=== PATIENT | female | born 1970 | race Caucasian/White ===

== ENCOUNTER 2022-02-09 09:26 | Emergency (ER) | payer MEDICAID, SELFPAY ==
--- NOTE | 2022-02-09 09:34 | ECG_ITS ---
[facility] Test Date: 2022-02-09 Pat Name: Colleen Nielsen Department: Room: Gender: Female Pie Icer Machine: : 1970 Requested By: Cyrus Olivas Order Number: [id number] Reading MD: Jonathan Hayes M.D. Measurements Intervals [place] Rate: 91 P: 240 CO: 186 QRS: 46 QRSD: 85 T: 59 QT: 409 QTc: 504 Interpretive Statements ELECTRONIC ATRIAL PACEMAKER POSSIBLE RIGHT VENTRICULAR CONDUCTION DELAY [RSR (QR) IN V1/V2] MINIMAL ST DEPRESSION [0.025+ mV ST DEPRESSION] ABNORMAL RHYTHM ECG INTERPRETATION BASED ON A DEFAULT AGE OF 40 YEARS Compared to ECG 10/09/2016 17:25:26 Sinus rhythm no longer present Atrial premature complex(es) no longer present ST (T wave) deviation still present Electronically Signed On 02-09-2022 16:29:40 CDT by Jonathan Hayes M.D. [id number]
[2022-02-09 09:35] VITALS: BP 170/99; PULSE 98; RESP 18; TEMP 36.3; O2SAT 98; BMI 21.9
[2022-02-09 09:39] VITALS: BP 157/107
--- NOTE | 2022-02-09 09:54 | ED_ITS ---
HPI - Weakness General: Chief complaint: Weakness Stated complaint: weakness Time Seen by Provider: 02/09/22 09:34 Source: patient Mode of arrival: ambulatory Limitations: no limitations History of Present Illness: 51-year-old female presents emergency room complaining generalized weeakness. She is has a history hypertension atrial fibrillation has not been taking any of her medications or seeing any physicians for management of her chronic medical problems evidently due to cost and access. Some generalized abdominal discomfort no dysuria urgency or frequency. She states she has had this for the last several weeks she describes her self as feeling numb generally weak get some cramping in her abdomen denies hematochezia melena hematemesis coffee-ground emesis. Numbness and tingling is bilateral in upper and lower extremities as well as bilaterally on the face. MD Complaint: generalized weakness Onset (ago): week(s) Duration: constant Location: generalized Severity: mild Quality: tingling and numbness Relieving factors: none Associated symptoms: Denies chest pain, chills, confusion, melena, decreased appetite, diaphoresis, dysuria, easy bruising, fever(s), headache(s), myalgias, nausea, rash, short of breath, syncope or vomiting Review of Systems Const: Denies: fever(s), chills, fatigue, malaise or diaphoresis ENMT: Denies: throat pain, ear or mastoid pain, nasal discharge or nasal congestion Card: Denies: chest pain or syncope Resp: Denies: dyspnea, productive cough, non-productive cough or wheezing GI: Reports: abdominal pain (Intermittent lower abdominal cramping); Denies: nausea, vomiting or melena : Denies: dysuria Skin/Breast: Denies: rash or pruritus Neuro: Denies: headache(s) or confusion Gary/Lymph: Denies: easy bruising PFSH ED PFSH: Medical History Atrial fibrillation Cardiomyopathy delivery delivered delivery delivered Hypertension Pacemaker Radiculopathy SVT (supraventricular tachycardia) Surgical History H/O dilation and curettage History of partial hysterectomy Family History Other CAD (coronary artery disease) Cancer Diabetes Psychiatric illness Social History Smoking and tobacco status: current every day smoker Alcohol intake: never Physical Exam Const: COMMON NORMALS: no acute distress GENERAL APPEARANCE: cooperative and comfortable ORIENTATION/CONSCIOUSNESS: Yes awake, Yes oriented to person, Yes oriented to place and Yes oriented to time HENMT: COMMON NORMALS: normocephalic, atraumatic and hearing grossly normal bilaterally HEAD & SCALP: normocephalic and atraumatic Resp: COMMON NORMALS: normal respiratory effort, No retractions, No use of acc essory muscles and clear to auscultation bilaterally AUSCULTATION: clear to auscultation bilaterally Cardio: COMMON NORMALS: regular rate, regular rhythm and No murmurs present (Cardio) RATE: regular rate RHYTHM: regular rhythm GI: COMMON NORMALS: Soft to palpation and No hepatosplenomegaly present AUSCULTATION: Yes normoactive bowel sounds PALPATION: Yes Soft to palpation, No Tenderness to palpation present (GI), No Guarding due to palpation present (G I) and Yes No hepatosplenomegaly present Extremity: COMMON NORMALS: normal to inspection, capillary refill normal, no clubbing, cyanosis or edema, no calf tenderness and no pedal edema Neuro: SENSORIUM/ORIENTATION: Yes oriented to person, Yes oriented to place and Yes oriented to time Skin: COMMON NORMALS: no rashes or lesions noted GENERAL SKIN EXAM: no rashes or lesions noted Course Vital Signs: Vital signs: Vital Signs Temperature 97.3 F L 02/09/22 09:35 Pulse Rate 98 02/09/22 09:35 Respiratory Rate 18 02/09/22 09:35 Blood Pressure 170/99 02/09/22 09:35 Pulse Oximetry 98 02/09/22 09:35 Oxygen Delivery Me thod 02/09/22 09:35 MDM - Weakness Medical Decision Making No acute findings on exam. Blood pressure is elevated. EKG shows normal sinus rhythm. He should benefit from blood pressure control obvious best choice at is point with Toprol-XL. We will give her 30 days of that we will have case management get her set up for primary care and they can further evaluate some of her symptoms although I suspect some of them may be improved just by getting blood pressure under control. Medical Records I reviewed the patient's medical records. Lab Data I reviewed the patient's lab results. : 02/09/22 11:08 02/09/22 11:04 Laboratory Results WBC 6.2 10^3/uL (4.0-10.0) 02/09/22 11:08 Corrected WBC Cancelled 02/09/22 09:59 RBC 4.24 10^6/uL (4.1-5.3) 02/09/22 11:08 Hgb 15.5 g/dL (11.5-15.3) H 02/09/22 11:08 Hct 44.5 % (37.0-47.0) 02/09/22 11:08 MCV 105.0 fl (81-99) H 02/09/22 11:08 MCH 36.6 pg (28.0-34.0) H 02/09/22 11:08 MCHC 34.8 g/dL (30.0-36.0) 02/09/22 11:08 RDW 13.5 % (12.1-15.1) 02/09/22 11:08 Plt Count 198 10^3/cmm (130-400) 02/09/22 11:08 MPV 9.8 fL (7.4-10.4) 02/09/22 11:08 Gran % Cancelled 02/09/22 09:59 Neut % (Auto) 64.9 % 02/09/22 11:08 Lymph % (Auto) 24.8 % 02/09/22 11:08 [place] % (Auto) 6.6 % 02/09/22 11:08 Eos % (Auto) 2.9 % 02/09/22 11:08 Baso % (Auto) 0.6 % 02/09/22 11:08 Neut # (Auto) 4.05 10^3/uL (1.8-7.7) 02/09/22 11:08 Lymph # (Auto) 1.6 10^3/uL (0.8-4.8) 02/09/22 11:08 [place] # (Auto) 0.4 10^3/uL (0.2-0.9) 02/09/22 11:08 Eos # (Auto) 0.2 10^3/uL (0.0-0.8) 02/09/22 11:08 Baso # (Auto) 0.0 10^3/uL (0.0-0.1) 02/09/22 11:08 Absolute Gran (auto) Cancelled 02/09/22 09:59 Nucleated RBC % (auto) 0 % 02/09/22 11:08 Nucleated RBCs # 0.0 /100WBC 02/09/22 11:08 Sodium 139 mmol/L (136-145) 02/09/22 11:04 Potassium 3.5 mmol/L (3.5-5.1) 02/09/22 11:04 Chloride 102 mmol/L (98-107) 02/09/22 11:04 Carbon Dioxide 25 mmol/L (22-29) 02/09/22 11:04 Anion Gap 15.5 (5-19) 02/09/22 11:04 BUN 9 mg/dL (6-20) 02/09/22 11:04 Creatinine 0.5 mg/dL (0.5-0.9) 02/09/22 11:04 GFR Calculation 129.6 mL/min (90-130) 02/09/22 11:04 Glucose 92 mg/dL (65-115) 02/09/22 11:04 Calculated Osmolality 286 mOsm/kg (285-295) 02/09/22 11:04 Calcium 8.8 mg/dL (8.5-10.5) 02/09/22 11:04 Total Bilirubin 0.4 mg/dL (0.15-1.2) 02/09/22 11:04 AST 29 U/L (0-32) 02/09/22 11:04 ALT 29 U/L (0-33) 02/09/22 11:04 Alkaline Phosphatase 90 IU/L (35-105) 02/09/22 11:04 Total Protein 6.5 g/dL (6.6-8.7) L 02/09/22 11:04 Albumin 3.4 g/dL (3.5-5.2) L 02/09/22 11:04 Globulin 3.1 g/dL (1.3-4.6) 02/09/22 11:04 Discharge Plan Discharge Patient Disposition: Home Clinical Impression: Weakness, Atrial fibrillation, Hypertension Condition: Stable Prescriptions: New Toprol XL 25 mg tablet extended release 24 hr 25 mg PO DAILY Qty: 30 0RF Discharge Orders: Discharge ED (Routine); Ordered 02/09/22 Ordered By: Cyrus Palma Discharge Diet: Usual diet Discharge Activity: Resume usual activity Patient Instructions: Opioid Safety Activity Restrictions/Additional Instructions: Follow-up with primary care doctor within the next week. Case management will help make arrangements for you to establish. Coding Level of Care Code ED Software Writer for Jose Carlos Arana
[2022-02-09 11:09] VITALS: BP 155/94; PULSE 91; RESP 17; O2SAT 97
[2022-02-09 11:16] LABS: Basophils % 0.6 %; Eosinophils # 0.2 10^3/uL (0.0-0.8); Eosinophils % 2.9 %; Hematocrit 44.5 % (37.0-47.0); Hemoglobin 15.5 g/dL (11.5-15.3); Lymphocytes # 1.6 10^3/uL (0.8-4.8); Lymphocytes % 24.8 %; Mean Corpuscular HGB Conc 34.8 g/dL (30.0-36.0); Mean Corpuscular Hemoglobin 36.6 pg (28.0-34.0); Mean Platelet Volume 9.8 fL (7.4-10.4); Monocytes # 0.4 10^3/uL (0.2-0.9); Monocytes % 6.6 %; Neutrophils # 4.05 10^3/uL (1.8-7.7); Neutrophils % 64.9 %; Nucleated Red Blood Cells % 0 %; Platelet Count 198 10^3/cmm (130-400); Red Blood Count 4.24 10^6/uL (4.1-5.3); Red Cell Distribution Width 13.5 % (12.1-15.1); White Blood Count 6.2 10^3/uL (4.0-10.0)
[2022-02-09 11:28] LABS: Alanine Aminotransferase 29 U/L (0-33); Albumin Level 3.4 g/dL (3.5-5.2); Alkaline Phosphatase 90 IU/L (35-105); Anion Gap 15.5 (5-19); Aspartate Amino Transferase 29 U/L (0-32); Blood Urea Nitrogen 9 mg/dL (6-20); Calcium 8.8 mg/dL (8.5-10.5); Carbon Dioxide 25 mmol/L (22-29); Chloride 102 mmol/L (98-107); Globulin 3.1 g/dL (1.3-4.6); Glomerular Filtration Rate 129.6 mL/min (90-130); Glucose 92 mg/dL (65-115); Osmolality Calculated 286 mOsm/kg (285-295); Potassium 3.5 mmol/L (3.5-5.1); Sodium 139 mmol/L (136-145); Total Bilirubin 0.4 mg/dL (0.15-1.2); Total Protein 6.5 g/dL (6.6-8.7)
[2022-02-09 12:00] VITALS: BP 151/93; PULSE 87; RESP 21; O2SAT 98
--- NOTE | 2022-02-15 10:45 | DCPLANNER ---
hospital account manager had message to speak with patient about getting established with a primary care physician. hospital account manager called phone number [phone], unable to speak with patient or leave a voicemail due to phone being out of service.
== END 2022-02-09 12:02 | disposition home or self-care (01) ==
PROVIDERS: Emergency Provider Family Medicine
DX: R53.1 Weakness (principal); I48.91 Unspecified atrial fibrillation; I10 Essential (primary) hypertension; Z95.0 Presence of cardiac pacemaker; F17.210 Nicotine dependence, cigarettes, uncomplicated
CPT/HCPCS: 80053; 85025; 93005; 99284

== ENCOUNTER 2022-04-13 13:07 | Emergency (ER) | payer MEDICAID, SELFPAY ==
[2022-04-13 13:25] VITALS: BP 144/73; PULSE 107; RESP 16; TEMP 36.8; O2SAT 97; BMI 19.5
--- NOTE | 2022-04-13 14:17 | XR_ITS ---
WS: [id number] Exam: XR chest 1V portable [id number] Date/Time of Exam: 04/13/2022 2:17 PM Reason For Exam: dyspnea/cough Comparison 10/09/2016. The lungs are hyperinflated and clear. Normal cardiomediastinal silhouette. No pleural effusions. Bon y structures are intact. A permanent cardiac pacer superimposes the left chest. Additional leads supe rimpose the chest. XR/XR chest 1V portable [id number] IMPRESSION: 1. Pulmonary hyperinflation which might indicate obstructive lung disease. No a cute process.
--- NOTE | 2022-04-13 14:18 | W.ED.WEAKNES ---
HPI - Weakness General: Chief complaint: Weakness Stated complaint: Weakness Time Seen by Provider: 04/13/22 14:02 Source: patient Mode of arrival: EMS History of Present Illness: 52-year-old female who presents emergency room with complaints of what she describes as full body numbness intermittently and progressive weakness. This began about 3 months ago she felt it got worse last 3 days she has seen her doctor and had other testing done not found anything for it. Today she felt severely weak at work ended up ultimately calling EMS she has not had any chest pain. She has a history of atrial fibrillation. She had an ablation for her A. fib previously. We had seen him previously she had elevated blood pressure when started on Toprol-XL and interventions for her to follow-up with her primary care physician. She has been seen in [facility]. They did some studies (hello 3 no definitive diagnosis has been made. MD Complaint: generalized weakness Onset (ago): month(s) (3) Duration: constant and progressively worsening Location: generalized Severity: moderate Quality: tingling Relieving factors: none Exacerbating factors: none Associated symptoms: Denies chest pain, chills, confusion, melena, decreased appetite, diaphoresis, dysuria, easy bruising, fever(s), headache(s), myalgias, nausea, rash, short of breath, syncope or vomiting Review of Systems Const: Denies: fever(s), chills, fatigue, malaise or diaphoresis ENMT: Denies: throat pain, ear or mastoid pain, nasal discharge or nasal congestion Card: Denies: chest pain, palpitations or syncope Resp: Denies: dyspnea, productive cough or non-productive cough GI: Denies: abdominal pain, nausea, vomiting or melena : Denies: flank pain, difficulty voiding, dysuria, urinary frequency or urinary urgency Musc: Denies: neck pain or back pain Skin/Breast: Denies: rash or pruritus Neuro: Reports: weakness in extremities; Denies: headache(s) or confusion Gary/Lymph: Denies: easy bruising PFSH ED PFSH: Medical History Atrial fibrillation Cardiomyopathy delivery delivered delivery delivered Hypertension Pacemaker Radiculopathy SVT (supraventricular tachycardia) Surgical History H/O dilation and curettage History of partial hysterectomy Family History Other CAD (coronary artery disease) Cancer Diabetes Psychiatric illness Social History Smoking and tobacco status: current every day smoker Alcohol intake: never Physical Exam Const: GENERAL APPEARANCE: cooperative and comfortable ORIENTATION/CONSCIOUSNESS: Yes awake, Yes oriented to person, Yes oriented to place and Yes oriented to time HENMT: COMMON NORMALS: normocephalic, atraumatic, hearing grossly normal bilaterally, external ears normal, EAC's normal, TM's normal bilaterally, Normal nasal mucous membranes and turbinates present, moist oral mucous membranes and oropharynx normal HEAD & SCALP: normocephalic and atraumatic NOSE: Normal nasal mucous membranes and turbinates present EXTERNAL EAR: Yes external ears normal EXTERNAL AUDITORY CANAL: EAC's normal TYMPANIC MEMBRANE: TM's normal bilaterally Eye: COMMON NORMALS: Equal, round and reactive pupils present, EOMs intact bilaterally, conjunctivae normal and no scleral icterus CONJUNCTIVA: Yes conjunctivae normal PUPIL: Yes Equal, round and reactive pupils present Neck/C-Spine: COMMON NORMALS: full ROM, no lymphadenopathy, supple and no JVD Lymph: LYMPHATIC: no lymphadenopathy noted and no lymphedema noted Resp: COMMON NORMALS: normal respiratory effort, No retractions, No use of accessory muscles and clear to auscultation bilaterally AUSCULTATION: clear to auscultation bilaterally Cardio: COMMON NORMALS: no JVD, regular rate, regular rhythm and No murmurs present (Cardio) RATE: regular rate RHYTHM: regular rhythm GI: COMMON NORMALS: Soft to palpation and No hepatosplenomegaly present AUSCULTATION: Yes normoactive bowel sounds PALPATION: Yes Soft to palpation, No Tenderness to palpation present (GI), No Guarding due to palpation present (GI) and Yes No hepatosplenomegaly present Extremity: COMMON NORMALS: normal to inspection, capillary refill normal, no clubbing, cyanosis or edema, no calf tenderness and no pedal edema Neuro: SENSORIUM/ORIENTATION: Yes oriented to person, Yes oriented to place and Yes oriented to time Skin: COMMON NORMALS: no rashes or lesions noted GENERAL SKIN EXAM: no rashes or lesions noted Course Vital Signs: Vital signs: Vital Signs Temperature 98.2 F 04/13/22 13:25 Pulse Rate 107 H 04/13/22 13:25 Respiratory Rate 16 04/13/22 13:25 Blood Pressure 144/73 04/13/22 13:25 Pulse Oximetry 97 04/13/22 13:25 Oxygen Delivery Me thod 04/13/22 13:25 MDM - Weakness Medical Decision Making Hypokalemia. Remainder of her labs are unremarkable. For other symptoms no emergent findings at this time functionally she is doing well we will go and discharge her home encouraged to follow-up with primary care doctor for further evaluation of these chronic issues. I did increase her lisinopril for blood pressure and also added potassium follow-up with her primary care doctor reevaluate blood pressure and repeat potassium. Medical Records I reviewed the patient's medical records. Lab Data I reviewed the patient's lab results. : 04/13/22 14:39 04/13/22 14:39 Radiology Impressions Chest X-Ray 04/13/22 14:17 IMPRESSION: 1. Pulmonary hyperinflation which might indicate obstructive lung disease. No acute process. Laboratory Results WBC 5.1 10^3/uL (4.0-10.0) 04/13/22 14:39 RBC 4.74 10^6/uL (4.1-5.3) 04/13/22 14:39 Hgb 16.2 g/dL (11.5-15.3) H 04/13/22 14:39 Hct 46.2 % (37.0-47.0) 04/13/22 14:39 MCV 97.5 fl (81-99) 04/13/22 14:39 MCH 34.2 pg (28.0-34.0) H 04/13/22 14:39 MCHC 35.1 g/dL (30.0-36.0) 04/13/22 14:39 RDW 14.8 % (12.1-15.1) 04/13/22 14:39 Plt Count 148 10^3/cmm (130-400) 04/13/22 14:39 MPV 9.4 fL (7.4-10.4) 04/13/22 14:39 Neut % (Auto) 61.2 % 04/13/22 14:39 Lymph % (Auto) 26.3 % 04/13/22 14:39 [place] % (Auto) 8.9 % 04/13/22 14:39 Eos % (Auto) 2.4 % 04/13/22 14:39 Baso % (Auto) 0.8 % 04/13/22 14:39 Neut # (Auto) 3.10 10^3/uL (1.8-7.7) 04/13/22 14:39 Lymph # (Auto) 1.3 10^3/uL (0.8-4.8) 04/13/22 14:39 [place] # (Auto) 0.5 10^3/uL (0.2-0.9) 04/13/22 14:39 Eos # (Auto) 0.1 10^3/uL (0.0-0.8) 04/13/22 14:39 Baso # (Auto) 0.0 10^3/uL (0.0-0.1) 04/13/22 14:39 Nucleated RBC % (auto) 0 % 04/13/22 14:39 Nucleated RBCs # 0.0 /100WBC 04/13/22 14:39 Sodium 137 mmol/L (136-145) 04/13/22 14:39 Potassium 2.8 mmol/L (3.5-5.1) L* 04/13/22 14:39 Chloride 97 mmol/L (98-107) L 04/13/22 14:39 Carbon Dioxide 27 mmol/L (22-29) 04/13/22 14:39 Anion Gap 15.8 (5-19) 04/13/22 14:39 BUN 7 mg/dL (6-20) 04/13/22 14:39 Creatinine 0.5 mg/dL (0.5-0.9) 04/13/22 14:39 GFR Calculation 129.1 mL/min (90-130) 04/13/22 14:39 Glucose 95 mg/dL (65-115) 04/13/22 14:39 Calculated Osmolality 282 mOsm/kg (285-295) L 04/13/22 14:39 Calcium 8.5 mg/dL (8.5-10.5) 04/13/22 14:39 Total Bilirubin 0.8 mg/dL (0.15-1.2) 04/13/22 14:39 AST 23 U/L (0-32) 04/13/22 14:39 ALT 19 U/L (0-33) 04/13/22 14:39 Alkaline Phosphatase 98 U/L (35-105) 04/13/22 14:39 Total Protein 6.7 g/dL (6.6-8.7) 04/13/22 14:39 Albumin 3.4 g/dL (3.5-5.2) L 04/13/22 14:39 Globulin 3.3 g/dL (1.3-4.6) 04/13/22 14:39 Urine Color Dark yellow (Yellow) 04/13/22 14:50 Urine Appearance Clear (CLEAR) 04/13/22 14:50 Urine pH 6.0 (5-7) 04/13/22 14:50 Ur Specific [place] 1.020 (1.005-1.030) 04/13/22 14:50 Urine Protein Trace (Negative) A 04/13/22 14:50 Urine Glucose (UA) Negative (Normal) 04/13/22 14:50 Urine Ketones Trace (Negative) A 04/13/22 14:50 Urine Blood Negative (Negative) 04/13/22 14:50 Urine Nitrate Negative 04/13/22 14:50 Urine Bilirubin 1+ (Negative) 04/13/22 14:50 Urine Urobilinogen 2.0 mg/dL (Negative) H 04/13/22 14:50 Ur Leukocyte Esterase Negative 04/13/22 14:50 Urine RBC 5-10 /hpf (0-2) H 04/13/22 14:50 Urine WBC 5-10 /hpf (0-5) H 04/13/22 14:50 Ur Squamous Epith Cells 5-10 /hpf (0-5) H 04/13/22 14:50 Amorphous Sediment Not Reportable 04/13/22 14:50 Urine Bacteria Trace /hpf (NONE) 04/13/22 14:50 Urine Mucus 1+ /hpf 04/13/22 14:50 Urine Yeast 2+ /hpf H 04/13/22 14:50 Discharge Plan Discharge Patient Disposition: Home Clinical Impression: Acute hypokalemia, Atrial fibrillation, Hypertension Condition: Stable Prescriptions: New potassium chloride 20 mEq tablet extended release 20 meq PO BID Qty: 14 0RF Changed lisinopril 5 mg tablet 10 mg PO DAILY Qty: 30 0RF No Action metoprolol succinate [Toprol XL] 25 mg tablet extended release 24 hr 25 mg PO DAILY Qty: 30 0RF Discharge Orders: Discharge ED (Routine); Ordered 04/13/22 Ordered By: Cyrus Palma Patient Instructions: Opioid Safety, Pain Management Coding Level of Care Code ED Solidworks Mechanical Designer for Jose Carlos Fwd Exam Comprehensive
[2022-04-13 14:53] LABS: Basophils % 0.8 %; Eosinophils # 0.1 10^3/uL (0.0-0.8); Eosinophils % 2.4 %; Hematocrit 46.2 % (37.0-47.0); Hemoglobin 16.2 g/dL (11.5-15.3); Lymphocytes # 1.3 10^3/uL (0.8-4.8); Lymphocytes % 26.3 %; Mean Corpuscular HGB Conc 35.1 g/dL (30.0-36.0); Mean Corpuscular Hemoglobin 34.2 pg (28.0-34.0); Mean Corpuscular Volume 97.5 fl (81-99); Mean Platelet Volume 9.4 fL (7.4-10.4); Monocytes # 0.5 10^3/uL (0.2-0.9); Monocytes % 8.9 %; Neutrophils % 61.2 %; Nucleated Red Blood Cells % 0 %; Platelet Count 148 10^3/cmm (130-400); Red Blood Count 4.74 10^6/uL (4.1-5.3); Red Cell Distribution Width 14.8 % (12.1-15.1); White Blood Count 5.1 10^3/uL (4.0-10.0)
[2022-04-13 15:23] LABS: Alanine Aminotransferase 19 U/L (0-33); Albumin Level 3.4 g/dL (3.5-5.2); Alkaline Phosphatase 98 U/L (35-105); Anion Gap 15.8 (5-19); Aspartate Amino Transferase 23 U/L (0-32); Blood Urea Nitrogen 7 mg/dL (6-20); Calcium 8.5 mg/dL (8.5-10.5); Carbon Dioxide 27 mmol/L (22-29); Chloride 97 mmol/L (98-107); Globulin 3.3 g/dL (1.3-4.6); Glomerular Filtration Rate 129.1 mL/min (90-130); Glucose 95 mg/dL (65-115); Osmolality Calculated 282 mOsm/kg (285-295); Sodium 137 mmol/L (136-145); Total Bilirubin 0.8 mg/dL (0.15-1.2); Total Protein 6.7 g/dL (6.6-8.7)
[2022-04-13 15:28] LABS: Potassium 2.8 mmol/L (3.5-5.1)
[2022-04-13 15:31] LABS: Blood Urine Negative (Negative); Glucose Urine UA Negative (Normal); Ketones Urine Trace (Negative); Leukocyte Esterase Urine Negative; Nitrate Urine Negative; Protein Urine Trace (Negative); Urine Appearance Clear (CLEAR)
[2022-04-13 15:33] LABS: Add Urine Microscopic? YES; Bilirubin Urine 1+ (Negative); Urine Color Dark Yellow (Yellow)
[2022-04-13 15:41] LABS: Bacteria Urine TRACE /hpf; Mucus Urine 1+ /hpf
[2022-04-13 15:42] LABS: Add Urine Culture? Yes
[2022-04-13] MEDS: potassium chloride oral liq 20 mEq/15 mL UDC 60 MEQ PO (15:50)
== END 2022-04-13 16:55 | disposition home or self-care (01) ==
PROVIDERS: Emergency Provider Family Medicine
DX: I48.91 Unspecified atrial fibrillation (principal); E87.6 Hypokalemia; I10 Essential (primary) hypertension; Z95.0 Presence of cardiac pacemaker; F17.210 Nicotine dependence, cigarettes, uncomplicated
CPT/HCPCS: 71045; 80053; 81001; 85025; 87086; 99285

== ENCOUNTER 2022-05-04 14:28 | Outpatient (CLI) | payer BC, SELFPAY ==
--- NOTE | 2022-05-04 14:36 | CT_ITS ---
WS: [id number] CT HEAD TECHNIQUE: Noncontrast CT of the head obtained from the skullbase to the vertex. CLINICAL INFORMATION: NUMBNESS, PARESTHESIA COMPARISON: CT 2013 DLP: 922.[address] scans at [facility] use at least one of these dose optimization techniques: automated e xposure control; mA and/or kV adjustment per patient size (includes targeted exams where dose is matc hed to clinical indication); or iterative reconstruction. FINDINGS: No evidence of intracranial hemorrhage or mass effect. Ventricular system and basal cisterns are mcmahon nt. No extra-axial fluid collections. No evidence of mass or mass effect. Normal hill-white different iation. Mild mucosal thickening in the ethmoid air cells. Secretions within the sphenoid sinus consistent wit h sinusitis. Mastoid air cells are well aerated. Normal visualized soft tissues. CT/CT head wo con* [id number] IMPRESSION: 1. No evidence of intracranial hemorrhage or mass effect. 2. Normal hill-white differentiation. 3. Mild sphenoid sinusitis. Mild mucosal thickening ethmoid air cells.
== END 2022-05-04 14:29 | disposition home or self-care (01) ==
LOC: RAD 14:29
PROVIDERS: PCP Family Medicine; Visit Provider Family Medicine
DX: R20.0 Anesthesia of skin (principal); J32.3 Chronic sphenoidal sinusitis
CPT/HCPCS: 70450

== ENCOUNTER 2022-05-18 10:54 | Outpatient (CLI) | payer BC, MEDICAID, SELFPAY ==
--- NOTE | 2022-05-18 11:11 | XRR_ITS ---
PROCEDURE INFORMATION: Exam: XR Lumbosacral Spine Exam date and time: 05/18/2022 11:12 AM Age: 52 years old Clinical indication: Low back pain; Prior surgery; Surgery type: Hysteron, c section, pacemaker; Additional info: Back pain, low TECHNIQUE: Imaging protocol: Radiologic exam of the lumbosacral spine. Views: 6 or more views. Including flexion and extension views. Total images: 3 COMPARISON: No relevant prior studies available. FINDINGS: Bones/joints: Moderate disc space height loss at L5/S1. Vertebral body heights are maintained. No evidence of spondylolysis nor spondylolisthesis. No evidence of dynamic instability with flexion and extension maneuvers. Soft tissues: Unremarkable. Vasculature: Moderate atherosclerotic disease is evident. XR/XR lumbar spine 6V w f/e [id number] IMPRESSION: 1. Moderate disc space height loss at L5/S1. 2. No evidence of dynamic instability with flexion and extension maneuvers.
--- NOTE | 2022-05-18 11:12 | XRR_ITS ---
PROCEDURE INFORMATION: Exam: XR Thoracic Spine Exam date and time: 05/18/2022 11:12 AM Age: 52 years old Clinical indication: Other: Low back pain; Prior surgery; Surgery type: Hystero, c section, pacemaker; Additional info: Back pain, low TECHNIQUE: Imaging protocol: Radiologic exam of the thoracic spine. Views: 3 views. COMPARISON: CR XR chest 1V portable [id number] 04/13/2022 2:22 PM FINDINGS: Bones/joints: Normal. No acute fracture. Normal alignment. Soft tissues: Unremarkable. Other findings: Three views submitted. XR/XR thoracic spine 3V* [id number] IMPRESSION: No acute findings.
== END 2022-05-18 10:55 | disposition home or self-care (01) ==
LOC: RAD 10:57
PROVIDERS: PCP Family Medicine; Visit Provider Family Medicine
DX: M54.50 Low back pain, unspecified (principal); Z95.0 Presence of cardiac pacemaker
CPT/HCPCS: 72072; 72114

== ENCOUNTER → 2023-01-02 14:17 | Outpatient (BNVA) | payer BC, MEDICAID, SELFPAY | PROVIDERS: PCP Family Medicine; Referring Provider Family Medicine; Visit Provider Specialist | DX: G72.9 Myopathy, unspecified (principal); R53.1 Weakness | CPT/HCPCS: 82550; 82607; 83516; 83519; 84443; 85651; 86160; 86162; 86235; 86255; 86376 ==

== ENCOUNTER 2023-01-31 12:46 | Outpatient (CLI) | payer BC, MEDICAID, SELFPAY ==
--- NOTE | 2023-01-31 12:57 | XRR_ITS ---
PROCEDURE INFORMATION: Exam: XR Left Knee Exam date and time: 01/31/2023 1:04 PM Age: 52 years old Clinical indication: Pain; Knee; Bilateral; Additional info: L knee joint pain x 3 months TECHNIQUE: Imaging protocol: Radiologic exam of the left knee. Views: 3 views. COMPARISON: No relevant prior studies available. FINDINGS: Bones/joints: Normal. Soft tissues: Normal. XR/XR knee LT 3V* [id number] IMPRESSION: No abnormal findings.
--- NOTE | 2023-01-31 12:57 | XRR_ITS ---
PROCEDURE INFORMATION: Exam: XR Right Knee Exam date and time: 01/31/2023 1:04 PM Age: 52 years old Clinical indication: Pain; Knee; Bilateral; Additional info: R knee joint pain x 3 months TECHNIQUE: Imaging protocol: Radiologic exam of the right knee. Views: 3 views. COMPARISON: No relevant prior studies available. FINDINGS: Bones/joints: Normal. Soft tissues: Normal. XR/XR knee RT 3V* [id number] IMPRESSION: No abnormal findings.
== END 2023-01-31 12:47 | disposition home or self-care (01) ==
PROVIDERS: PCP Family Medicine; Visit Provider Family Medicine
DX: M25.562 Pain in left knee (principal); M25.561 Pain in right knee
CPT/HCPCS: 73562

== ENCOUNTER → 2023-05-01 11:07 | Outpatient (BNVA) | payer BC, MEDICAID, SELFPAY | PROVIDERS: PCP Family Medicine; Visit Provider Internal Medicine Rheumatology | DX: Z79.899 Other long term (current) drug therapy (principal); M19.90 Unspecified osteoarthritis, unspecified site; Z11.1 Encounter for screening for respiratory tuberculosis; Z11.59 Encounter for screening for other viral diseases; M45.6 Ankylosing spondylitis lumbar region | CPT/HCPCS: 36415; 73130; 73630; 80076; 82085; 82310; 82550; 82565; 83520; 83735; 84132; 85651; 86140; 86200; 86431; 86480; 86704; 86803; 86812; 87340 ==

== ENCOUNTER 2023-05-04 13:51 | Inpatient (IN) | payer BC, MEDICAID, SELFPAY ==
[2023-05-04 13:52] VITALS: BP 121/89; PULSE 98; RESP 18; TEMP 36.7; O2SAT 95; BMI 25.0
--- NOTE | 2023-05-04 13:58 | XR_ITS ---
WS: [id number] Portable AP upright chest, 05/04/2023 Clinical Data: chest pain/STEMI Comparison: Portable chest, 04/13/2022 Findings: No nodules, masses or effusions are seen. The heart is normal. The pulmonary vascularity is not increased. No pneumonia or pneumothorax is seen. There is a permanent pacemaker with the generat or overlying the left lateral chest and the wires ending in the heart. The diaphragms are flattened. Impression: Hyperinflation.
--- NOTE | 2023-05-04 13:59 | ECG_ITS ---
[facility] Test Date: 2023-05-04 Pat Name: Colleen Nielsen Department: Room: 106 Gender: Female Telecom Specialist: : 1970 Requested By: Cyrus Olivas Order Number: [id number] Reading MD: Sophie Kirk M.D. Measurements Intervals [place] Rate: 89 P: 222 MN: 262 QRS: 55 QRSD: 88 T: -50 QT: 407 QTc: 496 Interpretive Statements ELECTRONIC ATRIAL PACEMAKER ST DEVIATION AND MODERATE T-WAVE ABNORMALITY, CONSIDER INFERIOR ISCHEMIA [-0.1+ mV T-WAVE IN II/aVF] Compared to ECG 02/09/2022 09:55:45 T-wave abnormality now present Possible ischemia now present ST (T wave) deviation no longer present Electronically Signed On 05-05-2023 1:06:10 CDT by Sophie Kirk M.D. [id number]
--- NOTE | 2023-05-04 14:01 | ED_ITS ---
HPI - Chest Pain General: Chief Complaint: Chest Pain Stated Complaint: stemi Time Seen by Provider: 05/04/23 13:58 Source: patient Mode of arrival: ambulatory History of Present Illness: 53-year-old female arrives via EMS immediately upon arrival to medic show an EKG. He was quite concerned she has a history of atrial fibrillation has a pacer but has marked ST elevation on their initial EKGs that does meet criteria at the time she was reporting a 10 of 10 pain. She is given nitro and aspirin. She is on apixaban for A-fib she has a pacer because of rate control issues with her A-fib. On arrival here she reports her pain back down to a 4 out of 10. She had an episode similar to this but much less intense about 1 week ago it resolved itself spontaneously. She has no known history of coronary artery disease denies previous angiogram bypass or stress testing. MD complaint: chest pain Onset (ago): hour(s) (1) Timing of current episode: episodic Prior episodes: Yes Onset: during rest Pain location: substernal and left chest Severity: severe Quality: tightness and aching Relieving factors: nitroglycerin Exacerbating factors: nothing Associated symptoms: Reports dyspnea; Deny abdominal pain or fever(s) Treatment prior to arrival: aspirin and nitroglycerin Risk Factors: Coronary artery disease risk factors: diabetes Review of Systems Const: Denies: fever(s) or chills Card: Reports: chest pain Resp: Reports: dyspnea GI: Denies: abdominal pain : Denies: dysuria, urinary frequency or urinary urgency Musc: Denies: neck pain or back pain Skin/Breast: Denies: rash PFSH ED PFSH: Medical History Atrial fibrillation Cardiomyopathy delivery delivered delivery delivered High risk medication use Hx of cardiac pacemaker Hypertension Immunization counseling Inflammatory arthritis Pacemaker Radiculopathy SS-A antibody positive SVT (supraventricular tachycardia) Surgical History H/O dilation and curettage History of partial hysterectomy Family History Other CAD (coronary artery disease) Cancer Diabetes Psychiatric illness Social History (Reviewed 05/04/23 @ 14:05 by Trever Kee Smoking and tobacco/nicotine status: current every day tobacco/nicotine user cigarettes Packs smoked per day: 1 Years cigarettes smoked: 39 Alcohol intake: never Substance/Drug Use: never Physical Exam Const: COMMON NORMALS: no acute distress GENERAL APPEARANCE: cooperative and comfortable ORIENTATION/CONSCIOUSNESS: Yes awake, Yes oriented to person, Yes oriented to place and Yes oriented to time HENMT: COMMON NORMALS: normocephalic, atraumatic and hearing grossly normal bilaterally HEAD & SCALP: normocephalic and atraumatic Resp: COMMON NORMALS: normal respiratory effort, No retractions, No use of accessory muscles and clear to auscultation bilaterally AUSCULTATION: clear to auscultation bilaterally Cardio: COMMON NORMALS: regular rate, regular rhythm and No murmurs present (Cardio) RATE: regular rate RHYTHM: regular rhythm GI: COMMON NORMALS: Soft to palpation and No hepatosplenomegaly present AUSCULTATION: Yes normoactive bowel sounds PALPATION: Yes Soft to palpation, No Tenderness to palpation present (GI), No Guarding due to palpation present (GI) and Yes No hepatosplenomegaly present Extremity: COMMON NORMALS: normal to inspection, capillary refill normal, no clubbing, cyanosis or edema, no calf tenderness and no pedal edema Neuro: SENSORIUM/ORIENTATION: Yes oriented to person, Yes oriented to place and Yes oriented to time Skin: COMMON NORMALS: no rashes or lesions noted GENERAL SKIN EXAM: no rashes or lesions noted Course Vital Signs: Vital signs: Vital Signs Temperature 98.1 F 05/04/23 13:52 Pulse Rate 98 05/04/23 13:52 Respiratory Rate 18 05/04/23 13:52 Blood Pressure 121/89 05/04/23 13:52 Pulse Oximetry 95 05/04/23 13:52 Oxygen Delivery Me thod Room Air 05/04/23 13:52 MDM - Chest Pain Medical Decision Making EMS EKGs in the field clearly show ST elevation [place]. Repeat EKG shortly after arrival patient is feeling 4 of 10 chest pain her EKG has nearly completely normalized compared to an EKG in January of this year she has inverted T waves now in 2 3 and aVF. She still is having 4 of 10 chest pain she will be given Plavix heparin a STEMI alert was called immediately after reviewed the initial EKGs from EMS. Dr. Last has been here we reviewed the EKGs together he concurs and recommends that the patient be taken directly to the Mortgage Or Loan Underwriter. Medical Records I reviewed the patient's medical records. Lab Data I reviewed the patient's lab results. No radiology studies performed this visit Discharge Plan Discharge Patient Disposition: Admitted As Inpatient Clinical Impression: ST elevation [place] (STEMI), Atrial fibrillation, Unstable angina pectoris Condition: Stable Prescriptions: No Action prednisone 20 mg tablet See Rx Instructions PO .COMPLEX PRN (Reason: joint pain flare) Qty: 30 0RF Rx Instructions: take 2 tab daily for 7 days as needed for arthritis flare PO PRN; metoprolol succinate [Toprol XL] 25 mg tablet extended release 24 hr 25 mg PO DAILY Qty: 30 0RF lisinopril 5 mg tablet 10 mg PO DAILY Qty: 30 0RF Eliquis 5 mg tablet 5 mg PO BID Qty: 180 6RF Referrals: Izabela Fields DO [Primary Care Provider] - Coding Level of Care Code ED Cannoneer for Chg Yasmeen
[2023-05-04] MEDS: heparin 5,000 unit/mL INJ 1 mL 4000 UNIT IVP (14:02)
[2023-05-04] MEDS: clopidogrel 300 mg Tablet 600 MG PO (14:02)
--- NOTE | 2023-05-04 14:04 | PM.HP ---
Providers/Chief Complaint Admitting Physician: Ephraim Herrera MD/ Interventional cardiology Primary Care Provider: Izabela Fields DO Chief Complaint: STEMI History of Present Illness Colleen Nielsen is a 53 year old female with past medical history of atrial fibrillation s/p ablation, pacemaker in place, on Eliquis who called EMS for severe substernal 10/10 chest discomfort. EMS EKG shows inferior leads ST elevation.. She has T wave inversions in inferior leads on the ER EKG. Her chest pain has improved but still has 3/10 chest discomfort. Review of Systems Const: Denies: fever(s) or chills Card: Reports: chest pain Resp: Reports: dyspnea GI: Denies: abdominal pain : Denies: dysuria, urinary frequency or urinary urgency Musc: Denies: neck pain or back pain Skin/Breast: Denies: rash Medications/Allergies Home Medications Medication Instructions Recorded Confirmed Last Taken Type apixaban 5 mg tablet (Eliquis) 5 mg PO BID #180 tabs 12/28/22 05/01/23 Unknown Rx lisinopril 5 mg tablet 10 mg PO DAILY #30 tabs 12/28/22 05/01/23 Unknown Rx metoprolol succinate 25 mg 25 mg PO DAILY #30 tabs 12/28/22 05/01/23 Unknown Rx tablet,extended release 24 hr (Toprol XL) prednisone 20 mg tablet See Rx Instructions PO .COMPLEX 05/01/23 05/01/23 Unknown Rx PRN joint pain flare #30 tabs Allergies Allergy/AdvReac Type Severity Reaction Status Date / Time Sulfa (Sulfonamide Allergy Severe ALGY-Swell Verified 05/01/23 09:59 Antibiotics) Lip/Tongue/Throat PFSH Acute PFSH: Medical History Atrial fibrillation Cardiomyopathy delivery delivered delivery delivered High risk medication use Hx of cardiac pacemaker Hypertension Immunization counseling Inflammatory arthritis Pacemaker Radiculopathy SS-A antibody positive SVT (supraventricular tachycardia) Surgical History H/O dilation and curettage History of partial hysterectomy Family History Other CAD (coronary artery disease) Cancer Diabetes Psychiatric illness Social History Smoking and tobacco/nicotine status: current every day tobacco/nicotine user cigarettes Packs smoked per day: 1 Years cigarettes smoked: 39 Alcohol intake: never Substance/Drug Use: never Vitals/I&O/Wt Last Vital Signs Temp 98.1 F 05/04/23 13:52 Pulse 98 05/04/23 13:52 Resp 18 05/04/23 13:52 BP 121/89 05/04/23 13:52 Pulse Ox 95 05/04/23 13:52 O2 Del Method Room Air 05/04/23 13:52 Weight last 48 hrs Weight 160 lb Physical Exam Narrative: GENERAL: Patient is alert, awake and oriented x3. [] NECK: No jugular vein distension. [] HEENT: No cyanosis. No icterus. No pallor. [] HEART: Regular S1 and S2. No murmur, rub or gallop. [] LUNGS: Clear to auscultate bilaterally. [] CENTRAL NERVOUS SYSTEM: Grossly nonfocal. [] EXTREMITIES: Lower extremities with no edema A&P Assessment and plan (1) STEMI (ST elevation myocardial infarction): (2) Atrial fibrillation: (3) Hypertension: (4) Cardiomyopathy: Qualifiers: Cardiomyopathy type: dilated Qualified Code(s): I42.0 - Dilated cardiomyopathy (5) Pacemaker: Plan Patient has presented with inferior wall acute ST elevation [place]. We will take her emergently to cardiac Equal Employment Opportunity Officer cardiac cath with possible PCI. Risks and benefits of the procedure have been discussed with the patient. She understands them and wants to proceed. Aspirin, Plavix and heparin bolus given. We will order echocardiogram. Attestations Medical Necessity Statement*: Care expected to cross 2 midnights. Patient has inferior wall ST elevation [place]. Plan for emergent revascularization Coding Level of Care Code Acute Code for [facility] Diagnoses STEMI (ST elevation myocardial infarction) I21.3 Atrial fibrillation I48.91 Hypertension I10 Cardiomyopathy I42.0 Cardiomyopathy type: dilated Pacemaker Z95.0
--- NOTE | 2023-05-04 14:11 | XACV_ITS ---
Exam Room: 2 Ht: 170 cm Wt: 73 kg BSA: 1.86 m2 Gender: Female : 1970 Any Known Allergies: Sulfa Exam Priority: Routine Procedure(s): Procedure Description: Diagnostic procedure Procedure Description: PCI procedure Procedure Description: Drug Eluting Coronary Stent Procedure Description: PTCA Procedure Description: Miscellaneous Procedure Description: ACT Procedure Description: Coronary Angiography Diagnostic Cath Status: Emergency Diagnostic Findings * Mild RCA has a significant 70% stenosis. Distal Right Coronary Artery: critical 95% stenosis with significant thrombus, KIP: 3 flow. This is the culprit vessel for STEMI. * Circumflex is small sized vessel. No significant disease. * Left Anterior Descending has no disease. * Left Main: luminal irregularities 20% stenosis, KIP: 3 flow. * Coronary angiography shows right dominance. PCI Status: Emergency PCI Indication: Immediate PCI for STEMI Interventional Findings * Procedure detail: We engaged RCA with JR4 guide catheter. IV heparin was administered to maintain anticoagulation. 0.014 run-through guidewire was used to cross the stenosis and was put in distal vessel. We predilated the stenosis with 2.5 x 12 mm semicompliant balloon. This was followed by placement of 3.5 x 18mm resolute [place] drug-eluting stent in distal RCA. After stenting another stenosis was noted just proximal to the stent. We then placed a 3.5 x 12 mm resolute Sarahi drug-eluting stent from mid to distal vessel. At this time final angiogram was performed that showed excellent stent expansion, no residual stenosis and KIP-3 flow. Guidewire and guide catheter were removed. The patient left the Platen Press Operator Apprentice in a stable condition.. * Mid Right Coronary Artery to Distal Right Coronary Artery: 70% stenosis treated with a MDT R SARAHI 3.5X12 DEYA. 0% residual stenosis, KIP: 3 flow. * Distal Right Coronary Artery: 95% stenosis treated with a AB TREK 2.50X12 RX BALLOON, and MDT R SARAHI 3.5X18 DEYA. 0% residual stenosis, IKP: 3 flow. Conclusions 1. Critical distal 2. RCA 3. stenosis with significant thrombus. This is culprit vessel for ST elevation [place]. Successful revascularization with 1 stent. Mid RCA had severe stenosis s/p PCI with 1 stent.. 4. Mid Right Coronary Artery to Distal Right Coronary Artery was treated with a Drug Eluting Stent. 5. Distal Right Coronary Artery was treated with a Balloon, and Drug Eluting Stent. Recommendations * Continue eliquis. We will add plavix for atleast 1 year. * High intensity statin therapy. * Outpatient cardiology follow up in 1-2 weeks. Interventional RX Recommendation: PCI w/o planned CABG Diagnostic RX Recommendation: PCI w/o planned CABG Anticoagulation: Heparin Pressures Phase:Rest AO : 103 / 75 ( 89 ) @ 3:17:00 PM 85 / 71 ( 79 ) @ 3:22:00 PM Clinical Evaluation EBL: 5mL-10mL Procedural Details Pre-Procedure Time Out. Identified patient by full name and date of as verbalized by the patient/guarantor. Does the consent match the physician's order: N/A Emergent. Accurate & Complete Informed Consent: N/A Emergent. Inpatient/Outpatient History & Physical on Chart: N/A Emergent. If H&P is completed, is and addenduem needed: N/A Emergent; If yes, is the addendum complete: N/A Emergent. Visualize and Verify Site with Patient/Guarantor: N/A. Relevant Radiology Images available: N/A. Pre-op teaching completed and patient verbalized understanding. The risks, benefits, and alternatives of sedation and/or procedure were discussed by physician. The patient agrees to continue. Procedure started. [facility] Clinical Fraility Score: 4: Vulnerable. Platen Press Operator Apprentice Indications: Worsening Angina. Chest Pain Symptom Assessment: Typical Angina Symptoms. Cardiovascular Instability: No, if yes, Persistant Ischemic Symptoms. Correct patient, site and procedure confirmed by cath team. Current diagnosis: STEMI. PERRLA. Strong, equal hand spare hand carding bilaterally. Lungs clear x 5 lobes. IV Site on Arrival: 20 gauge in the left anticubital. IV Fluids: 0.9% NaCl at KVO. 0 mL infused prior to labview programmer. Pre Procedural Pulses: right radial was 2+. Oxygen started at 2liters/min via nasal canula. right groin was prepped with chloroprep then draped in the usual sterile fashion. right radial was prepped with chloroprep then draped in the usual sterile fashion. Baseline sample Acquired. HR: 91 BPM. Physician notified. Physician arrived. Physician scrubbed in. Immediate Pre-Procedure Time Out. Correct Patient: Yes; Correct Procedure: Yes; Correct Site: Yes; Correct Patient Position: Yes; Correct Supplies: Yes; Dried Flammable Prep: Yes; Blood Products Available: N/A;. Lidocaine 1% infiltrated to the right radial. Arterial access obtained. AP Pads placed on pt chest. 6 latvian JR 4 guide catheter was inserted over the wire. Angiography performed of RCA. Admit Source: Emergency department. Runthrough guidewire was advanced through the guide catheter to lesion in the distal RCA. Current Diagnosis : STEMI. Balloon inserted to lesion in the distal RCA. Inflation number : 1 A AB TREK 2.50X12 RX BALLOON was prepped and advanced across the Dist RCA , then inflated to 8 MELISSA for 0:15 seconds. Inflation number: 2 The AB TREK 2.50X12 RX BALLOON was reinflated across the Dist RCA, to 8 MELISSA for 0:16 seconds. Balloon out. Inflation Number : 3 A MDT R SARAHI 3.5X18 DEYA -Lot Number# [id number] Exp 10/02/25 was prepped and advanced across the Dist RCA. The stent was deployed at 12 MELISSA for 0:20 seconds. Stent inserted to lesion in the distal RCA. Stent balloon out over wire. Results checked. Stent inserted to lesion in the mid RCA. Inflation Number : 1 A MDT R SARAHI 3.5X12 DEYA -Lot Number# [id number] 09/21/2024 was prepped and advanced across the Mid RCA. The stent was deployed at 12 MELISSA for 0:16 seconds. Stent balloon out over wire. Results checked. Wire out. ACT drawn. Results 296 seconds. Therapeutic limits - pre-heparin administration 90-150 seconds and monitoring heparin during a vascular procedure >250 seconds. Guide catheter out. A 5 latvian TIG catheter in over wire. Multiple views taken of left coronary artery. PCI Indication : Immediate PCI for STEMI. Catheter out. A TR Band was successful obtaining hemostatsis at the Right Radial artery insertion site. Post Procedure: Pulses reassessed and unchanged. PERRLA. Strong, equal hand spare hand carding bilaterally. No VTE prophylaxis required. Medication's Wasted: Other = Fentanyl 50 mcg. Medication's Wasted: Lidocaine 1% = 2 ml. Medication's Wasted: Heparin = 3000 u. Total IV fluids: 30 mL. PCI Indication: STEMI. Post-op diagnosis: STEMI, subtotal thrombotic occlusion to mid/distal RCA. Complications: none. Estimated blood loss: 5mL-10mL. Responsiveness - Normal response to verbal stimuli; alert and oriented, PERRLA. Airway - Unaffected, no intervention required; spontaneous ventilation. Circulation: W/N/L, pulses unchanged. Nausea/Vomiting: No. Procedure completed. Patient transferred by wheelchair to 1st floor. Vital chart was stopped. Access Site Site: Right Radial artery Sheath Size: 6 Fr Hemostasis Method: TR Band Hemostasis Success: Successful Procedure Medications Start: 2:15 PM Stop: 2:15 PM Medication: Versed Amount: 1 mg Route: I.V. Start: 2:15 PM Stop: 2:15 PM Medication: Fentanyl Amount: 50 mcg Route: I.V. Start: 2:18 PM Stop: 2:18 PM Medication: Versed Amount: 1 mg Route: I.V. Start: 2:22 PM Stop: 2:22 PM Medication: Heparin Amount: 3000 units Route: I.V. I, the attending physician, have reviewed and verified all procedure medications. Yes, all medications given per verbal order Report Signatures Finalized by Ephraim Herrera MD on 05/08/2023 09:41 AM
[2023-05-04 14:40] VITALS: PULSE 85
[2023-05-04 14:45] LABS: Troponin(5th) Baseline 122 ng/L (0-10)
--- NOTE | 2023-05-04 14:48 | USCV_ITS ---
Colleen Nielsen Age: 53 Gender: F : 1970 Exam Date: 05/04/2023 15:51 Ordering Phys: Ephraim Herrera M.D ([email or web address]) Technologist: Jim Mtz Exam Location: [facility] [place] Indication: NSTEMI BP: 118 / 85 HR: 85 Rhythm: Sinus Technical Quality: Adequate MEASUREMENTS (Male / Female) Normal Values 2D ECHO LV Diastolic Diameter PLAX 5.2 cm 4.2 - 5.9 / 3.9 - 5.3 cm LV Systolic Diameter PLAX 4.0 cm IVS Diastolic Thickness 1.0 cm 0.6 - 1.0 / 0.6 - 0.9 cm IVS Systolic Thickness 1.6 cm LVPW Diastolic Thickness 0.9 cm 0.6 - 1.0 / 0.6 - 0.9 cm LVPW Systolic Thickness 1.2 cm LVOT Diameter 2.0 cm LV Ejection Fraction 2D Teich 47.1 % LV Ejection Fraction MOD 2C 74.5 % LV Ejection Fraction 2C AL 75.2 % LA Diameter 3.5 cm M-MODE Aortic Annulus Diameter 3.8 cm LA Ao Ratio MM 1.0 MV E Point Septal Separation 2.0 cm DOPPLER AV Peak Velocity 69.0 cm/s LVOT Peak Velocity 76.0 cm/s AV Area Cont Eq vti 3.1 cm squared AV Area Cont Eq pk 3.5 cm squared MV Area PHT 5.0 cm squared Mitral E to A Ratio 0.5 MV E' Velocity 25.5 cm/s Mitral E to MV E' Ratio 8.8 Mitral E to LV E' Lateral Ratio 9.3 Mitral E to LV E' Septal Ratio 8.3 TR Peak Velocity 93.0 cm/s TR Peak Gradient 3.5 mmHg TV Peak E Velocity 87.0 cm/s Right Atrial Pressure 3.0 mmHg Pulmonary Artery Systolic Pressu 6.5 mmHg RV Acceleration Time 0.2 s FINDINGS Left Ventricle Left ventricle is mildly dilated. LV systolic function is mildly reduced with EF of 45 to 50%. Mild global hypokinesis. Grade 1 diastolic dysfunction Right Ventricle Normal in size and function Right Atrium Normal in size Left Atrium Normal in size Mitral Valve Structurally normal mitral valve. Trace mitral regurgitation. Aortic Valve Structurally normal aortic valve. Tricuspid Valve Mild tricuspid regurgitation. Insufficient TR jet to evaluate RVSP Pulmonic Valve Not well visualized Pericardium Normal Aorta Normal in size IVC Appears to be normal CONCLUSIONS LV systolic function is mildly reduced with EF of 45 to 50%. Grade 1 diastolic dysfunction. Trace mitral regurgitation Mild tricuspid regurgitation Compared to prior echocardiogram from 2016, no significant changes are seen Ephraim Herrera MD (Electronically Signed) Final Date: 04 May 2023 16:52 S
[2023-05-04 15:06] VITALS: BP 148/101; PULSE 89; RESP 12; O2SAT 92
--- NOTE | 2023-05-04 16:43 | ECG_ITS ---
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 Measurements Intervals [place] Rate: 85 P: 186 [place]: 240 QRS: 23 QRSD: 81 T: -1 QT: 397 QTc: 473 Interpretive Statements ELECTRONIC ATRIAL PACEMAKER NONSPECIFIC ST & T-WAVE ABNORMALITY ABNORMAL RHYTHM ECG Compared to ECG 05/04/2023 13:52:31 Possible ischemia no longer present T-wave abnormality still present Electronically Signed On 05-05-2023 1:34:43 CDT by Sophie Kirk M.D. [id number]
[2023-05-04] MEDS: nicotine 21 mg Patch 1 PATCH TRANSDERMA (16:59)
[2023-05-04] MEDS: sodium chloride 0.9% 1,000 ML 100 ML IV (17:01)
[2023-05-04 17:06] VITALS: BP 128/89; PULSE 85; RESP 17; O2SAT 94
[2023-05-04 17:32] LABS: Basophils % 0.2 %; Eosinophils # 0.1 10^3/uL (0.0-0.8); Eosinophils % 0.8 %; Hematocrit 43.3 % (36-47); Lymphocytes # 2.1 10^3/uL (0.8-4.8); Lymphocytes % 21.8 %; Mean Corpuscular HGB Conc 32.3 g/dL (30-55); Mean Corpuscular Hemoglobin 31.6 pg (27-33); Mean Corpuscular Volume 97.7 fl (85-98); Mean Platelet Volume 9.4 fL (7.4-10.4); Monocytes # 0.5 10^3/uL (0.2-0.9); Monocytes % 4.8 %; Neutrophils % 71.8 %; Nucleated Red Blood Cells % 0 %; Platelet Count 162 10^3/cmm (157-399); Red Blood Count 4.43 10^6/uL (3.85-5.65); Red Cell Distribution Width 18.6 % (12.1-15.1); White Blood Count 9.49 10^3/uL (3.29-11.43)
[2023-05-04 17:59] LABS: Anion Gap 14.1 (5-19); Blood Urea Nitrogen 23 mg/dL (6-20); Calcium 8.7 mg/dL (8.5-10.5); Carbon Dioxide 24 mmol/L (22-29); Chloride 102 mmol/L (98-107); Glomerular Filtration Rate 87.2 mL/min (90-130); Glucose 99 mg/dL (65-115); Osmolality Calculated 286 mOsm/kg (285-295); Potassium 4.1 mmol/L (3.5-5.1); Sodium 136 mmol/L (136-145)
--- NOTE | 2023-05-04 18:00 | PC.NURSE ---
TR Band still in place but all air has been removed. Will leave the TR Band in place for a while longer as the pt takes eliquis and may still be a bleeding risk. Will pass along to evening or night nurse supervisor RN.
[2023-05-04] MEDS: acetaminophen 325 mg Tablet 650 MG PO (19:51)
[2023-05-04] MEDS: temazepam 15 mg Capsule PO (19:51)
[2023-05-04 20:00] VITALS: BP 130/84; PULSE 85; RESP 23; TEMP 36.7; O2SAT 96
--- NOTE | 2023-05-04 20:03 | PC.NURSE ---
TR band removed at this time. No s/s of bleeding or hematoma formation observed. Covered site with 2x2 and bio-occlusive dressing. Instructed patient on site care and restrictions. Patient and family verbalized complete understanding. Will continue to monitor.
--- NOTE | 2023-05-04 21:11 | ECG_ITS ---
[facility] Test Date: 2023-05-04 Pat Name: Colleen Nielsen Department: Room: 106 Gender: Female Communications Designer: : 1970 Requested By: Cyrus Olivas Order Number: [id number] Reading MD: Sophie Kirk M.D. Measurements Intervals [place] Rate: 85 P: 263 [place]: 237 QRS: 32 QRSD: 89 T: -3 QT: 422 QTc: 502 Interpretive Statements ELECTRONIC ATRIAL PACEMAKER NONSPECIFIC ST & T-WAVE ABNORMALITY ABNORMAL RHYTHM ECG Compared to ECG 05/04/2023 16:43:41 No significant changes Electronically Signed On 05-05-2023 1:35:51 CDT by Sophie Kirk M.D. [id number]
[2023-05-04 21:20] LABS: Troponin 5 6HR Delta 220.8 ng/L (0-12)
[2023-05-04 21:21] LABS: Troponin 5 6HR 342.8 ng/L (0-10)
[2023-05-04 22:00] VITALS: PULSE 85
[2023-05-05] VITALS: BP 135/84; PULSE 85; RESP 19; TEMP 36.7; O2SAT 97
[2023-05-05 04:00] VITALS: BP 122/78; PULSE 85; RESP 19; TEMP 36.7; O2SAT 95
[2023-05-05 04:49] VITALS: PULSE 85
[2023-05-05 05:12] LABS: Basophils % 0.5 %; Eosinophils # 0.1 10^3/uL (0.0-0.8); Eosinophils % 1.9 %; Hematocrit 39.1 % (36-47); Lymphocytes % 32.3 %; Mean Corpuscular HGB Conc 33.5 g/dL (30-55); Mean Corpuscular Volume 95.4 fl (85-98); Mean Platelet Volume 9.3 fL (7.4-10.4); Monocytes # 0.3 10^3/uL (0.2-0.9); Monocytes % 5.2 %; Neutrophils # 3.77 10^3/uL (1.8-7.7); Neutrophils % 59.8 %; Nucleated Red Blood Cells % 0 %; Platelet Count 159 10^3/cmm (157-399); Red Cell Distribution Width 18.4 % (12.1-15.1); White Blood Count 6.31 10^3/uL (3.29-11.43)
[2023-05-05 05:23] LABS: Anion Gap 14.9 (5-19); Blood Urea Nitrogen 18 mg/dL (6-20); Calcium 8.4 mg/dL (8.5-10.5); Carbon Dioxide 25 mmol/L (22-29); Chloride 103 mmol/L (98-107); Glomerular Filtration Rate 87.2 mL/min (90-130); Glucose 82 mg/dL (65-115); Osmolality Calculated 289 mOsm/kg (285-295); Potassium 3.9 mmol/L (3.5-5.1); Sodium 139 mmol/L (136-145)
[2023-05-05 08:07] VITALS: BP 139/83; PULSE 85; RESP 16; TEMP 36.8; O2SAT 94
--- NOTE | 2023-05-05 08:40 | P.DS_ITS ---
Discharge Providers Date of Admission: 05/04/23 14:38 Date of Discharge: May 05, 2023 Attending Provider at Admission: Ephraim Herrera M.D Attending Provider at Discharge: Ephraim Herrera M.D Primary Care Provider: Izabela Fields DO Diagnoses at Discharge Discharge Diagnosis (1) STEMI (ST elevation myocardial infarction): Status: Acute (2) Atrial fibrillation: Status: Acute (3) Hypertension: Status: Acute (4) Cardiomyopathy: Status: Acute Qualifiers: Cardiomyopathy type: dilated Qualified Code(s): I42.0 - Dilated cardiomyopathy (5) Pacemaker: Status: Acute Reason for Visit Reason for Visit: STEMI Brief History: 53 year old female with past medical history of atrial fibrillation s/p ablation, pacemaker in place, on Eliquis who called EMS for severe substernal 10/10 chest discomfort.? EMS EKG shows inferior leads ST elevation..? She has T wave inversions in inferior leads on the ER EKG.? Her chest pain has improved but still has 3/10 chest discomfort. Hospital Course Hospital Course Coronary angiogram demonstrated severe mid to distal RCA stenosis with significant thrombus. She underwent successful revascularization with 2 stents. Echo showed mildly reduced LV systolic function. She stayed overnight and was stable. She was discharged home on Eliquis and Plavix. Importance of comp liance emphasized. Physical Exam Narrative: GENERAL: Patient is alert, awake and oriented x3. [] NECK: No jugular vein distension. [] HEENT: No cyanosis. No icterus. No pallor. [] HEART: Regular S1 and S2. No murmur, rub or gallop. [] LUNGS: Clear to auscultate bilaterally. [] CENTRAL NERVOUS SYSTEM: Grossly nonfocal. [] EXTREMITIES: Lower extremities with no edema Discharge Data Studies Completed and Pending Completed Studies During Hospitalization Category Date Time Status XR chest 1V portable [id number] Stat Exams 05/04/23 13:58 Completed CV. echo complete* [id number] Routine Ultrasound 05/04/23 14:48 Completed Pending at discharge Category Date Time Status HUMANITIES AND LANGUAGES PROFESSOR request for service Routine Exams 05/04/23 14:11 Ordered Laboratory Results WBC 6.31 10^3/uL (3.29-11.43) 05/05/23 04:25 RBC 4.10 10^6/uL (3.85-5.65) 05/05/23 04:25 Hgb 13.10 g/dL (11.27-16.99) 05/05/23 04:25 Hct 39.1 % (36-47) 05/05/23 04:25 MCV 95.4 fl (85-98) 05/05/23 04:25 MCH 32.0 pg (27-33) 05/05/23 04:25 MCHC 33.5 g/dL (30-55) 05/05/23 04:25 RDW 18.4 % (12.1-15.1) H 05/05/23 04:25 Plt Count 159 10^3/cmm (157-399) 05/05/23 04:25 MPV 9.3 fL (7.4-10.4) 05/05/23 04:25 Neut % (Auto) 59.8 % 05/05/23 04:25 Lymph % (Auto) 32.3 % 05/05/23 04:25 [place] % (Auto) 5.2 % 05/05/23 04:25 Eos % (Auto) 1.9 % 05/05/23 04:25 Baso % (Auto) 0.5 % 05/05/23 04:25 Neut # (Auto) 3.77 10^3/uL (1.8-7.7) 05/05/23 04:25 Lymph # (Auto) 2.0 10^3/uL (0.8-4.8) 05/05/23 04:25 [place] # (Auto) 0.3 10^3/uL (0.2-0.9) 05/05/23 04:25 Eos # (Auto) 0.1 10^3/uL (0.0-0.8) 05/05/23 04:25 Baso # (Auto) 0.0 10^3/uL (0.0-0.1) 05/05/23 04:25 Nucleated RBC % (auto) 0 % 05/05/23 04:25 Nucleated RBCs # 0.0 /100WBC 05/05/23 04:25 Sodium 139 mmol/L (136-145) 05/05/23 04:25 Potassium 3.9 mmol/L (3.5-5.1) 05/05/23 04:25 Chloride 103 mmol/L (98-107) 05/05/23 04:25 Carbon Dioxide 25 mmol/L (22-29) 05/05/23 04:25 Anion Gap 14.9 (5-19) 05/05/23 04:25 BUN 18 mg/dL (6-20) 05/05/23 04:25 Creatinine 0.7 mg/dL (0.5-0.9) 05/05/23 04:25 GFR Calculation 87.2 mL/min (90-130) L 05/05/23 04:25 Glucose 82 mg/dL (65-115) 05/05/23 04:25 Calculated Osmolality 289 mOsm/kg (285-295) 05/05/23 04:25 Calcium 8.4 mg/dL (8.5-10.5) L 05/05/23 04:25 Troponin T Baseline 122 ng/L (0-10) H* 05/04/23 13:37 Troponin T Hi Sens 6Hr 342.8 ng/L (0-10) H 05/04/23 20:00 Troponin T Hi Sens 6Hr Delta 220.8 ng/L (0-12) H* 05/04/23 20:00 Vitals Last Vital Signs Temp 98.2 F 05/05/23 08:07 Pulse 85 05/05/23 08:07 Resp 16 05/05/23 08:07 BP 139/83 05/05/23 08:07 Pulse Ox 94 05/05/23 08:07 O2 Del Method Room Air 05/05/23 08:07 Discharge Plan Discharge Patient Disposition: Home Condition: Stable Prescriptions: New clopidogrel 75 mg Tablet 75 mg PO DAILY Qty: 90 3RF atorvastatin 40 mg tablet 40 mg PO DAILY Qty: 90 3RF Continued prednisone 20 mg tablet See Rx Instructions PO .COMPLEX PRN (Reason: joint pain flare) Qty: 30 0RF Rx Instructions: take 2 tab daily for 7 days as needed for arthritis flare PO PRN; metoprolol succinate [Toprol XL] 25 mg tablet extended release 24 hr 25 mg PO DAILY Qty: 30 0RF lisinopril 5 mg tablet 10 mg PO DAILY Qty: 30 0RF Eliquis 5 mg tablet 5 mg PO BID Qty: 180 6RF Discharge Orders: Discharge Order (Routine); Ordered 05/05/23 Ordered By: Ephraim Herrera Referrals: Ephraim Herrera M.D [Physician] - (Your Dr. Herrera follow up will be scheduled during your Kaye Bess appointment. Thank you.) Izabela Fields DO [Primary Care Provider] - 05/11/23 2:15 pm Kaye Bess FNP [Nurse Practitioner] - 05/12/23 10:00 am Discharge Diet: Cardiac Patient Instructions: Coronary Angioplasty (DC), Opioid Safety, Post Angiogram Home Care Instructions, Post Heart Attack Stoplight Discharge Attestations Time Spent in Discharge Care*: greater than 30 min Quality Metrics Clinical Quality Measures [ Acute Myocardial Infaction { Clinical Trial Participant: No; Contraindication to aspirin: None; Aspirin prescribed; Contraindication to statin: None; Statin prescribed; Contraindication to PCI: None; PCI performed;}] Coding Level of Care Code Acute Code for [facility] Fwd Diagnoses STEMI (ST elevation myocardial infarction) I21.3 Atrial fibrillation I48.91 Hypertension I10 Cardiomyopathy I42.0 Cardiomyopathy type: dilated Pacemaker Z95.0
[2023-05-05] MEDS: metoprolol succinate ER (24 HR) 25 mg Tablet PO (08:58)
[2023-05-05] MEDS: clopidogrel 75 mg Tablet PO (08:59)
[2023-05-05] MEDS: apixaban 5 mg Tablet PO (08:59)
[2023-05-05] MEDS: lisinopril 10 mg Tablet PO (08:59)
[2023-05-05] MEDS: nicotine 21 mg Patch 1 PATCH TRANSDERMA (09:00)
[2023-05-05] MEDS: aspirin 81 mg EC Tablet PO (09:01)
--- NOTE | 2023-05-05 09:15 | PC.CHAP ---
Pastoral Care Encounter/Spiritual Assessment Type of Contact [] Declined restaurant associate visit [] Patient/Family/Request visit [] Outpatient visit [] Follow-up visit [] Physician referral [] Code/Alert [x] Routine visit [] Staff referral [] Actively dying [] Patient sleeping [] Family support [] [] Out of room [] Palliative care [] [] Receiving care in room [] Pre-surgical visit [] Trauma [] Long length of stay [] ICU visit [] Other: Relational/Emotional Strength [x] Patient feels connected with others/family/visitors/staff [] Distress [] Loneliness/isolation [] Abandonment Spirituality of Patient [x] Person of Bita [] Attends Latter-Day of their Bita x[] Believes in Prayer [] Reads Bible or Mormon materials [] There are Spiritual issues to be addressed Ultrasound Technol Interventions [x] Prayer [x] Active listening [] Non-anxious presence [x] Spiritual/emotional support [] Crisis/trauma care [] Spiritual counseling [] Bereavement support [] Provided bereavement packet [] Provided Bible/devotional materials [] Provided toy/stuffed animal, coloring book to patient or family member [] Provided Communion [] Anointing/[place] [] Salvation [x] Completed spiritual assessment [] Other: Impact on Illness or Injury [] Angry [] Fearful [] Anxious [] Often cries [] Exhaustion [] Unable to work [] Unable to attend hinduism [] Unable to walk/stand [] Unable to read [] Unable to drive [] Unable to eat/drink [] Unable to sleep [] Unable to be with family [] Patient intubated [] Other: Summary Time spent with patient 5 min
[2023-05-05 10:28] VITALS: BP 139/83; PULSE 85; RESP 16; TEMP 36.8; O2SAT 94
== END 2023-05-05 11:07 | disposition home or self-care (01) | DRG 322 ==
LOC: ER 14:09 → CCL 14:11 → CSU 15:19
PROVIDERS: Admitting Provider Internal Medicine; Emergency Provider Family Medicine; PCP Family Medicine; Visit Provider Internal Medicine
PROC: 027035Z Dilation of Coronary Artery, One Artery with Two Drug-eluting Intraluminal Devices, Percutaneous Approach (ICD-10-PCS; principal; 2023-05-04 14:10)
PROC: 027035Z Dilation of Coronary Artery, One Artery with Two Drug-eluting Intraluminal Devices, Percutaneous Approach (ICD-10-PCS; 2023-05-04 14:10)
DX: I21.11 ST elevation (STEMI) myocardial infarction involving right coronary artery (principal); I42.0 Dilated cardiomyopathy; I48.91 Unspecified atrial fibrillation; I10 Essential (primary) hypertension; Z95.0 Presence of cardiac pacemaker; Z79.01 Long term (current) use of anticoagulants; R76.8 Other specified abnormal immunological findings in serum; I25.10 Atherosclerotic heart disease of native coronary artery without angina pectoris
CPT/HCPCS: 36415; 71045; 80048; 84484; 85025; 85347; 93005; 93306; 93454; 96365; 99152; 99153; C1725; C1769; C1874; C1887; C1894; C9600; J1644; J2250; J3010; J3490; J7030; Q9967

== ENCOUNTER 2023-05-10 04:31 | Emergency (ER) | payer BC, MEDICAID, SELFPAY ==
[2023-05-10 04:36] VITALS: BP 147/109; PULSE 93; RESP 18; TEMP 36.5; O2SAT 98; BMI 25.0
[2023-05-10 04:45] VITALS: BP 147/109; PULSE 86; RESP 16; O2SAT 96
--- NOTE | 2023-05-10 04:48 | W.ED.EXTPRO ---
HPI - Extremity Problem General: Chief complaint: Extremity Problem,Nontraumatic Stated complaint: Pain from both Knees Down Time Seen by Provider: 05/10/23 04:34 History of Present Illness: Patient presents to the ER with complaints of severe pain from the knees down to the feet. Patient states she does have a history of neuropathy for the last year but does not take any drugs for it specifically. Patient states that upon waking this morning she had pain and is taken some Tylenol for it which helped a little bit but then it came back worse. The pain does not radiate anywhere and the pain is a dull burning achy deep pain in her bone type pain. Review of Systems General: Reports: 10 or more systems reviewed and unremarkable except in HPI and below PFSH ED PFSH: Medical History Atrial fibrillation Cardiomyopathy delivery delivered delivery delivered High risk medication use Hx of cardiac pacemaker Hypertension Immunization counseling Inflammatory arthritis Pacemaker Radiculopathy SS-A antibody positive ST elevation [place] (STEMI) STEMI (ST elevation myocardial infarction) SVT (supraventricular tachycardia) Surgical History H/O dilation and curettage History of partial hysterectomy Family History Other CAD (coronary artery disease) Cancer Diabetes Psychiatric illness Social History Smoking and tobacco/nicotine status: current every day tobacco/nicotine user cigarettes Packs smoked per day: 1 Years cigarettes smoked: 39 Alcohol intake: never Substance/Drug Use: never Physical Exam Const: COMMON NORMALS: no acute distress, average body habitus, patient oriented x3, no limitations, healthy appearing, alert and well nourished HENMT: COMMON NORMALS: normocephalic, atraumatic, hearing grossly normal bilaterally, external ears normal, Normal external nose present, moist oral mucous membranes and oropharynx normal HEAD & SCALP: normocephalic and atraumatic NOSE: Normal external nose present EXTERNAL EAR: Yes external ears normal Neck/C-Spine: COMMON NORMALS: no JVD Chest: COMMONS NORMALS: normal inspection of the chest and normal palpation of entire chest wall Resp: COMMON NORMALS: normal respiratory effort, No retractions, No use of accessory muscles and clear to auscultation bilaterally AUSCULTATION: clear to auscultation bilaterally Cardio: COMMON NORMALS: no JVD, regular rate, regular rhythm, S1 normal heart sound present, S2 normal heart sound present, No gallops present (Cardio), No clicks present (Cardio), No murmurs present (Cardio) and No rub (Cardio) RATE: regular rate RHYTHM: regular rhythm HEART SOUNDS: S1 normal heart sound present and S2 normal heart sound present GI: COMMON NORMALS: Normal to inspection, nondistended, normoactive bowel sounds present, Soft to palpation, non-tender, No hepatosplenomegaly present and no masses PALPATION: Yes Soft to palpation and Yes No hepatosplenomegaly present : COMMON NORMALS: Yes no CVA tenderness BLADDER/KIDNEY EXAM: Yes no CVA tenderness Back/Pelvis: COMMON NORMALS: no CVA tenderness Extremity: NARRATIVE EXTREMITY EXAM: Negative for acute edema bilateral lower extremities Neuro: COMMON NORMALS: patient oriented x3 SENSORIUM/ORIENTATION: Yes alert Course Vital Signs: Vital signs: Vital Signs Temperature 97.7 F 05/10/23 04:36 Pulse Rate 85 05/10/23 05:23 Respiratory Rate 16 05/10/23 05:23 Blood Pressure 115/75 05/10/23 05:23 Pulse Oximetry 95 05/10/23 05:23 Oxygen Delivery Me thod Room Air 05/10/23 04:36 MDM - Extremity (Nontraumatic) Medical Decision Making patient presents ER with bilateral leg pain from the knees down to the feet. Patient was given 300 mg of gabapentin and 4 mg of morphine and pain has resolved. I do believe this is a flareup of the patient's neuropathy. Patient will be placed on Neurontin and discharged to follow back up with her primary care physician on an as-needed basis. Differential Diagnosis Unlikely herpes zoster, gout, cellulitis, superficial thrombophlebitis, deep venous thrombosis of upper extremity, lower extremity edema or deep vein thrombosis of lower extremity Medical Records I reviewed the patient's medical records. Lab Data I reviewed the patient's lab results. No radiology studies performed this visit Discharge Plan Discharge Patient Disposition: Home Clinical Impression: Neuropathy Condition: Stable Prescriptions: New gabapentin 100 mg capsule 300 mg PO Q8H PRN (Reason: pain) Qty: 30 0RF No Action prednisone 20 mg tablet See Rx Instructions PO .COMPLEX PRN (Reason: joint pain flare) Qty: 30 0RF Rx Instructions: take 2 tab daily for 7 days as needed for arthritis flare PO PRN; metoprolol succinate [Toprol XL] 25 mg tablet extended release 24 hr 25 mg PO DAILY Qty: 30 0RF lisinopril 5 mg tablet 10 mg PO DAILY Qty: 30 0RF Eliquis 5 mg tablet 5 mg PO BID Qty: 180 6RF clopidogrel 75 mg Tablet 75 mg PO DAILY Qty: 90 3RF atorvastatin 40 mg tablet 40 mg PO DAILY Qty: 90 3RF Discharge Orders: Discharge ED (Routine); Ordered 05/10/23 Ordered By: Julio Oacsio Referrals: Izabela Fields DO [Primary Care Provider] - Patient Instructions: Peripheral Neuropathy Activity Restrictions/Additional Instructions: please take your gabapentin as directed as needed. Please follow-up with your family practice physician within the next 7 to 10 days for further evaluation and treatment Coding Level of Care Code ED Infantry Operations Specialist for Jose Carlos Arana
[2023-05-10] MEDS: gabapentin 300 mg Capsule PO (04:55)
[2023-05-10] MEDS: morphine 4 mg/mL SDV 1 mL IM (04:55)
[2023-05-10 05:23] VITALS: BP 115/75; PULSE 85; RESP 16; O2SAT 95
[2023-05-10 05:38] VITALS: BP 115/75; PULSE 85; RESP 16; TEMP 36.5; O2SAT 95
== END 2023-05-10 05:40 | disposition home or self-care (01) ==
PROVIDERS: Emergency Provider Emergency Medicine; PCP Family Medicine
DX: G62.9 Polyneuropathy, unspecified (principal); Z79.01 Long term (current) use of anticoagulants; Z79.02 Long term (current) use of antithrombotics/antiplatelets; F17.210 Nicotine dependence, cigarettes, uncomplicated; Z95.0 Presence of cardiac pacemaker; I10 Essential (primary) hypertension; I25.2 Old myocardial infarction
CPT/HCPCS: 99284; J2270

== ENCOUNTER → 2023-05-12 10:26 | Outpatient (BNVA) | payer BC, MEDICAID, SELFPAY | PROVIDERS: PCP Family Medicine; Visit Provider Nurse Practitioner Family | DX: I21.3 ST elevation (STEMI) myocardial infarction of unspecified site (principal) | CPT/HCPCS: 36415; 80048; 83880 ==

== ENCOUNTER 2023-05-24 16:04 | Outpatient (CLI) | payer BC, MEDICAID, SELFPAY ==
[2023-05-24 16:58] LABS: Basophils % 0.3 %; Eosinophils # 0.2 10^3/uL (0.0-0.8); Eosinophils % 2.8 %; Hematocrit 44.2 % (36-47); Lymphocytes # 1.6 10^3/uL (0.8-4.8); Lymphocytes % 18.2 %; Mean Corpuscular HGB Conc 33.9 g/dL (30-55); Mean Corpuscular Hemoglobin 32.1 pg (27-33); Mean Corpuscular Volume 94.6 fl (85-98); Mean Platelet Volume 9.5 fL (7.4-10.4); Monocytes # 0.5 10^3/uL (0.2-0.9); Monocytes % 5.8 %; Neutrophils # 6.24 10^3/uL (1.8-7.7); Neutrophils % 72.3 %; Nucleated Red Blood Cells % 0 %; Platelet Count 312 10^3/cmm (157-399); Red Blood Count 4.67 10^6/uL (3.85-5.65); Red Cell Distribution Width 16.9 % (12.1-15.1); White Blood Count 8.63 10^3/uL (3.29-11.43)
[2023-05-24 17:13] LABS: Alanine Aminotransferase 11 U/L (0-33); Albumin Level 4.2 g/dL (3.5-5.2); Alkaline Phosphatase 107 U/L (35-105); Anion Gap 16.5 (5-19); Aspartate Amino Transferase 11 U/L (0-32); Blood Urea Nitrogen 30 mg/dL (6-20); Calcium 9.5 mg/dL (8.5-10.5); Carbon Dioxide 29 mmol/L (22-29); Chloride 97 mmol/L (98-107); Globulin 3.6 g/dL (1.3-4.6); Glomerular Filtration Rate 42.7 mL/min (90-130); Glucose 112 mg/dL (65-115); Osmolality Calculated 293 mOsm/kg (285-295); Potassium 4.5 mmol/L (3.5-5.1); Sodium 138 mmol/L (136-145); Total Bilirubin 0.3 mg/dL (0.15-1.2); Total Protein 7.8 g/dL (6.6-8.7)
== END 2023-05-24 16:05 | disposition home or self-care (01) ==
PROVIDERS: PCP Family Medicine; Visit Provider Nurse Practitioner Family
DX: R25.2 Cramp and spasm (principal)
CPT/HCPCS: 36415; 80053; 85025

== ENCOUNTER → 2023-06-26 13:49 | Outpatient (BNVA) | payer BC, MEDICAID, SELFPAY | PROVIDERS: PCP Family Medicine; Visit Provider Internal Medicine Rheumatology | DX: Z79.899 Other long term (current) drug therapy (principal); M19.90 Unspecified osteoarthritis, unspecified site | CPT/HCPCS: 36415; 80076; 82565; 85025; 86140 ==

== ENCOUNTER → 2023-07-05 10:40 | Outpatient (BNVA) | payer BC, MEDICAID, SELFPAY | PROVIDERS: PCP Family Medicine; Visit Provider Internal Medicine Cardiovascular Disease | DX: R07.9 Chest pain, unspecified (principal) | CPT/HCPCS: 93005 ==

== ENCOUNTER 2023-07-18 09:41 | Outpatient (CLI) | payer BC, MEDICAID, SELFPAY ==
--- NOTE | 2023-07-18 | ECG_ITS ---
[facility] Test Date: 2023-07-18 Pat Name: Colleen Nielsen Department: Room: Gender: Female Continuum Of Care Manager: : 1970 Requested By: Sophie Kirk Order Number: [id number] Kateryna MD: Sophie Kirk M.D. Interpretive Statements NAME OF STUDY: LEXISCAN SESTAMIBI STRESS TEST INDICATION: ASHD/SWEATING/SOB, PROCEDURE: At the baseline, the EKG revealed normal sinus rhythm with some nonspecific ST changes. Poor R wave progression. The baseline heart was 91 bpm with a blood pressue of 143/87 mm of Hg Lexiscan was infused over a period of 20 seconds. A total of 0.4 milligrams of Lexiscan was infused. The stress phase was continued for a total of 5 minutes. Heart rate at the end of the stress phase was 89 bpm with a blood pressure 152/74 mm of Hg. The EKG at the peak infusion revealed no significant changes. Sestamibi was injected 20 seconds after the Lexiscan infusion. Heart rate at the end of the recovery phase was 95 bpm with a blood pressure of 147/77 mm of Hg. CONCLUSION: 1. No significant EKG changes with the LexiScan infusion 2. No LexiScan induced chest pain or cardiac arrhythmia 3. Normal blood pressure and heart rate response 4. Sestamibi/sestamibi perfusion scan pending; see separate report. Electronically Signed On 07-18-2023 21:54:00 SPOUT TENDER by Sophie Kirk M.D. [email or web address]
[2023-07-18 09:58] VITALS: BMI 26.6
--- NOTE | 2023-07-18 10:03 | NMCV_ITS ---
NM leonard perf SPECT r/s* [id number] Colleen Nielsen Age: 53 Gender: F : 1970 Exam Date: 07/18/2023 10:03 Ordering Phys: Sophie Kirk MD ([email or web address]) Technologist: STACY Leroy Exam Location: [facility] Indications: CORONARY ANGIOPLASTY STATUS STRESS TEST Please see separate stress test report in [facility] for full findings IMAGE PROTOCOL Rest/Stress 1 Lexiscan Day Radiopharmaceutical Dose (mCi) Administration Site Administered by Rest: Tc-99m 10.7 IV STACY Beavers Sestamibi Stress:Tc-99m 32.9 IV STACY Beavers Sestamibi Rest: 18-Jul-2023 60 Discovery 630 Stress: 18-Jul-2023 30 Discovery 630 0.4mg Lexiscan. Images obtained in supine and prone position. SPECT RESULTS Technical Quality: Excellent Raw Data Analysis: Normal Image Corrections: No attenuation or motion correction applied Summed Stress Score: 8 Summed Rest Score: 7 Summed Difference Score: 2 PERFUSION FINDINGS Moderate area of minimal to moderately decreased tracer uptake involving the mid and apical inferior, mid inferolateral, apical lateral and LV apex. Subtle areas of reversibility were noted on the mid inferior and the LV apex. FUNCTIONAL RESULTS (calculated via Gated SPECT) Stress Image LV EF (%): 64 Stress EDV (mL):96 TID: 1.02 Stress ESV (mL):35 FUNCTIONAL FINDINGS: Segmental wall motion analysis revealed no gross wall motion normalities IMPRESSIONS 1. Myocardial perfusion imaging revealing moderate area of minimal to moderately decreased aseptic tracer uptake involving the inferior, inferolateral and apical regions with subtle areas of reversibility suggesting myocardial scarring in the distribution of the right coronary artery/circumflex artery with subtle areas of tiny-infarction ischemia. 2. Normal LV ejection fraction 64%. 3. LV wall motion analysis revealing no gross wall motion abnormalities. 4. Normal LV volume No similar previous studies are available for comparison Dr Sophie Kirk MD FACC (Electronically Signed) Final Date: 19 July 2023 09:51 S
[2023-07-18] MEDS: regadenoson 0.4 Mg/5 ml Syringe IVP (11:10)
[2023-07-18 11:13] VITALS: BP 142/75; PULSE 95
== END 2023-07-18 09:42 | disposition home or self-care (01) ==
PROVIDERS: PCP Family Medicine; Visit Provider Internal Medicine Cardiovascular Disease
DX: I25.10 Atherosclerotic heart disease of native coronary artery without angina pectoris (principal); R06.02 Shortness of breath; R61 Generalized hyperhidrosis; R93.1 Abnormal findings on diagnostic imaging of heart and coronary circulation; Z98.61 Coronary angioplasty status
CPT/HCPCS: 36415; 78452; 93017; 96374; A9500; J2785

== ENCOUNTER 2023-07-27 15:28 | Outpatient (RCR) | payer BC, MEDICAID, SELFPAY | END 2023-08-16 23:59 | disposition home or self-care (01) | LOC: CR 15:28 | PROVIDERS: PCP Family Medicine; Referring Provider Internal Medicine; Visit Provider Internal Medicine | DX: I25.2 Old myocardial infarction (principal) | CPT/HCPCS: 93798 ==

== ENCOUNTER 2023-09-27 11:57 | Emergency (ER) | payer BC, MEDICAID, SELFPAY ==
[2023-09-27] VITALS (47 sets, daily range): BP systolic 121–162; BP diastolic 84–104; PULSE 85–104; RESP 10–25; TEMP 36.8; O2SAT 90–96
--- NOTE | 2023-09-27 12:29 | XRR_ITS ---
PROCEDURE INFORMATION: Exam: XR Chest Exam date and time: 09/27/2023 12:36 PM Age: 53 years old Clinical indication: Cough and dyspnea; Prior surgery; Surgery date: 6+ months; Surgery type: Pacemaker; Additional info: Dyspnea/cough TECHNIQUE: Imaging protocol: Radiologic exam of the chest. Views: 1 view. COMPARISON: CR XR chest 1V portable [id number] 05/04/2023 3:37 PM FINDINGS: Tubes, catheters and devices: Dual lead cardiac pacemaker with left chest generator. Lungs: No consolidation. Bilateral calcified granulomata. Pleural spaces: Unremarkable. No pleural effusion. No pneumothorax. Heart/Mediastinum: Unremarkable. No cardiomegaly. Bones/joints: Unremarkable. XR/XR chest 1V portable [id number] IMPRESSION: No acute findings.
--- NOTE | 2023-09-27 12:29 | ECG_ITS ---
[facility] Test Date: 2023-09-27 Pat Name: Colleen Nielsen Department: Room: Gender: Female Tube Buffer: : 1970 Requested By: Cyrus Olivas Order Number: [id number] Kateryna MD: Ephraim Herrera M.D. Measurements Intervals [place] Rate: 93 P: 250 NC: 193 QRS: 56 QRSD: 84 T: 27 QT: 397 QTc: 495 Interpretive Statements ELECTRONIC ATRIAL PACEMAKER ELECTRONIC VENTRICULAR PACEMAKER -- CONTOUR ANALYSIS BASED ON INTRINSIC RHYTHM POSSIBLE RIGHT VENTRICULAR CONDUCTION DELAY [RSR (QR) IN V1/V2] MODERATE ST DEPRESSION [0.05+ mV ST DEPRESSION] Compared to ECG 07/05/2023 10:50:16 ST (T wave) deviation now present T-wave abnormality no longer present Electronically Signed On 09-27-2023 16:15:18 CDT by Ephraim Herrera M.D. [id number]
[2023-09-27] MEDS: aspirin 81 mg Chew Tablet 324 MG PO (12:39)
--- NOTE | 2023-09-27 12:41 | ED_ITS ---
HPI - Chest Pain 2 General: Chief Complaint: Chest Pain Stated Complaint: Chest Pains Time Seen by Provider: 09/27/23 12:19 Source: patient Mode of arrival: ambulatory History of Present Illness: 53-year-old female who presents to the e mergency room with complaints of intermittent chest pain. She had chest pain for the last couple of days. It is intermittent and lasts just a few seconds. She has not noticed any exacerbating or relieving factors. She does have a known history of coronary artery disease. No associated diaphoresis or shortness of breath. MD complaint: chest pain Onset (ago): day(s) (2-3) Timing of current episode: episodic Prior episodes: Yes Pain location: substernal Pain radiation: none Severity: moderate Quality: sharp Relieving factors: nothing Exacerbating factors: nothing Associated symptoms: Deny abdominal pain, diaphoresis, dyspnea, fever(s), leg edema, nausea, palpitations, sense of impending doom, syncope or vomiting Review of Systems 2 Const: Denies: fever(s), chills or diaphoresis Card: Denies: chest pain, palpitations or syncope Resp: Denies: dyspnea GI: Denies: abdominal pain, nausea or vomiting : Denies: dysuria, urinary frequency or urinary urgency Musc: Denies: neck pain or back pain Skin/Breast: Denies: rash PFSH ED 2 PFSH: Medical History Sjogren's syndrome with inflammatory arthritis Coronary artery disease ST elevation [place] (STEMI) STEMI (ST elevation myocardial infarction) Hx of cardiac pacemaker Immunization counseling High risk medication use SS-A antibody positive Inflammatory arthritis delivery delivered SVT (supraventricular tachycardia) Pacemaker Cardiomyopathy Hypertension Atrial fibrillation Radiculopathy delivery delivered Surgical History History of partial hysterectomy H/O dilation and curettage Family History Other CAD (coronary artery disease) Cancer Diabetes Psychiatric illness Social History Smoking and tobacco/nicotine status: current every day tobacco/nicotine user cigarettes Packs smoked per day: 1 Years cigarettes smoked: 39 Alcohol intake: never Substance/Drug Use: never Physical Exam 2 Const: COMMON NORMALS: no acute distress GENERAL APPEARANCE: cooperative and comfortable ORIENTATION/CONSCIOUSNESS: Yes awake, Yes oriented to person, Yes oriented to place and Yes oriented to time HENMT: COMMON NORMALS: normocephalic, atraumatic and hearing grossly normal bilaterally HEAD & SCALP: normocephalic and atraumatic Resp: COMMON NORMALS: normal respiratory effort, No retractions, No use of accessory muscles and clear to auscultation bilaterally AUSCULTATION: clear to auscultation bilaterally Cardio: COMMON NORMALS: regular rate, regular rhythm and No murmurs present (Cardio) RATE: regular rate RHYTHM: regular rhythm GI: COMMON NORMALS: Soft to palpation and No hepatosplenomegaly present A USCULTATION: Yes normoactive bowel sounds PALPATION: Yes Soft to palpation, No Tenderness to palpation present (GI), No Guarding due to palpation present (GI) and Yes No hepatosplenomegaly present Extremity: COMMON NORMALS: normal to inspection, capillary refill normal, no clubbing, cyanosis or edema, no calf tenderness and no pedal edema Neuro: SENSORIUM/ORIENTATION: Yes oriented to person, Yes oriented to place and Yes oriented to time Skin: COMMON NORMALS: no rashes or lesions noted GENERAL SKIN EXAM: no rashes or lesions noted Course 2 Vital Signs: Vital signs: Vital Signs Temperature 98.3 F 09/27/23 12:03 Pulse Rate 85 09/27/23 15:55 Respiratory Rate 19 H 09/27/23 15:55 Blood Pressure 131/90 09/27/23 15:55 Pulse Oximetry 92 09/27/23 15:55 Oxygen Delivery Me thod Room Air 09/27/23 12:03 MDM - Chest Pain Medical Decision Making Cardiac enzymes are negative EKG does not show any acute changes she did recently have a stress test that had some questionable areas reversibility. Her description of pain now does not sound like acute coronary syndrome she has sharp spasms of pain last few seconds and then are gone again. Her blood pressure is elevated we will have her start on isosorbide mononitrate 30 mg daily. Additionally add pantoprazole 40 mg daily follow-up with Dr. Kirk within the next 7 to 10 days return if she has any worsening symptoms Medical Records I reviewed the patient's medical records. Lab Data I reviewed the patient's lab results. 09/27/23 13:00 09/27/23 13:00 Radiology Impressions Chest X-Ray 09/27/23 12:29 IMPRESSION: No acute findings. Laboratory Results WBC 4.78 10^3/uL (3.29-11.43) 09/27/23 13:00 RBC 4.55 10^6/uL (3.85-5.65) 09/27/23 13:00 Hgb 13.80 g/dL (11.27-16.99) 09/27/23 13:00 Hct 41.1 % (36-47) 09/27/23 13:00 MCV 90.3 fl (85-98) 09/27/23 13:00 MCH 30.3 pg (27-33) 09/27/23 13:00 MCHC 33.6 g/dL (30-55) 09/27/23 13:00 RDW 17.2 % (12.1-15.1) H 09/27/23 13:00 Plt Count 130 10^3/cmm (157-399) L 09/27/23 13:00 MPV 9.9 fL (7.4-10.4) 09/27/23 13:00 Neut % (Auto) 70.0 % 09/27/23 13:00 Lymph % (Auto) 20.7 % 09/27/23 13:00 [place] % (Auto) 5.4 % 09/27/23 13:00 Eos % (Auto) 3.1 % 09/27/23 13:00 Baso % (Auto) 0.6 % 09/27/23 13:00 Neut # (Auto) 3.34 10^3/uL (1.8-7.7) 09/27/23 13:00 Lymph # (Auto) 1.0 10^3/uL (0.8-4.8) 09/27/23 13:00 [place] # (Auto) 0.3 10^3/uL (0.2-0.9) 09/27/23 13:00 Eos # (Auto) 0.2 10^3/uL (0.0-0.8) 09/27/23 13:00 Baso # (Auto) 0.0 10^3/uL (0.0-0.1) 09/27/23 13:00 Nucleated RBC % (auto) 0 % 09/27/23 13:00 Nucleated RBCs # 0.0 /100WBC 09/27/23 13:00 Sodium 138 mmol/L (136-145) 09/27/23 13:00 Potassium 2.9 mmol/L (3.5-5.1) L 09/27/23 13:00 Chloride 98 mmol/L (98-107) 09/27/23 13:00 Carbon Dioxide 26 mmol/L (22-29) 09/27/23 13:00 Anion Gap 16.9 (5-19) 09/27/23 13:00 BUN 8 mg/dL (6-20) 09/27/23 13:00 Creatinine 0.6 mg/dL (0.5-0.9) 09/27/23 13:00 GFR Calculation 104.2 mL/min (90-130) 09/27/23 13:00 Glucose 96 mg/dL (65-115) 09/27/23 13:00 Calculated Osmolality 284 mOsm/kg (285-295) L 09/27/23 13:00 Calcium 7.9 mg/dL (8.5-10.5) L 09/27/23 13:00 Magnesium 1.5 mg/dL (1.7-2.3) L 09/27/23 13:00 Total Bilirubin 0.6 mg/dL (0.15-1.2) 09/27/23 13:00 AST 22 U/L (0-32) 09/27/23 13:00 ALT 13 U/L (0-33) 09/27/23 13:00 Alkaline Phosphatase 103 U/L (35-105) 09/27/23 13:00 Troponin T Baseline 10 ng/L (0-10) 09/27/23 13:00 Troponin T 120 Minute 8.86 ng/L (0-10) 09/27/23 15:10 Delta Troponin T -1.14 ABS# (0-10) L 09/27/23 15:10 Total Protein 6.5 g/dL (6.6-8.7) L 09/27/23 13:00 Albumin 3.8 g/dL (3.5-5.2) 09/27/23 13:00 Globulin 2.7 g/dL (1.3-4.6) 09/27/23 13:00 All radiology interpretation(s) finalized by discharge Discharge Plan Discharge Patient Disposition: Home Clinical Impression: Atypical chest pain Condition: Stable Prescriptions: New isosorbide mononitrate 30 mg tablet extended release 24 hr 30 mg PO DAILY Qty: 30 0RF Protonix 40 mg tablet,delayed release (DR/EC) 40 mg PO DAILY 28 Days Qty: 30 0RF No Action gabapentin 300 mg capsule 300 mg PO BID Qty: 60 3RF leflunomide 20 mg tablet 20 mg PO DAILY Qty: 30 3RF Eliquis 5 mg tablet 5 mg PO BID Qty: 180 6RF atorvastatin 40 mg tablet 40 mg PO DAILY Qty: 90 3RF clopidogrel 75 mg tablet 75 mg PO DAILY Qty: 90 3RF furosemide 40 mg tablet 40 mg PO DAILY PRN (Reason: edema) Qty: 30 1RF lisinopril 5 mg tablet 10 mg PO DAILY Qty: 90 1RF metoprolol succinate [Toprol XL] 25 mg tablet extended release 24 hr 25 mg PO DAILY Qty: 90 1RF potassium chloride [Klor-Con M20] 20 mEq tablet,ER particles/crystals 20 meq PO DAILY PRN (Reason: take with Lasix) Qty: 30 1RF hydroxyzine pamoate 25 mg capsule 25 mg PO BID PRN (Reason: Anxiety) prednisone 20 mg tablet 40 mg PO DAILY PRN (Reason: joint pain flare) Rx Instructions: take 2 tab daily for 7 days as needed for arthritis flare PO PRN; Discharge Orders: Discharge ED (Routine); Ordered 09/27/23 Ordered By: Cyrus Palma Referrals: Izabela Fields DO [Primary Care Provider] - Discharge Diet: As Directed Discharge Activity: Limit activity as instructed Patient Instructions: Diet for Stomach Ulcers and Gastritis (ED), Opioid Safety, Pain Management Activity Restrictions/Additional Instructions: Thank you for choosing [facility] for your healthcare needs today. Please realize this is an emergency room and that we are providing you with a medical screening exam and this may not be complete and all inclusive of all the testing and or work up that you may need to determine your ailment or severity of your illness. It is very important that you follow up as instructed or that you return to the Emergency Department should you have concerns or if your condition changes or worsens in any way. You were seen today with complaints of an atypical type chest pain your cardiac enzymes and EKGs did not show any acute changes however recent stress test showed some questionable early reversible ischemia. Recommend you start on isosorbide mononitrate daily. Will also start you on pantoprazole you should follow-up with your doctor with your children's librarian within the next week Coding Level of Care Code ED Triage Register Nurse for Jose Carlos Arana
[2023-09-27 13:12] LABS: Basophils % 0.6 %; Eosinophils # 0.2 10^3/uL (0.0-0.8); Eosinophils % 3.1 %; Hematocrit 41.1 % (36-47); Lymphocytes % 20.7 %; Mean Corpuscular HGB Conc 33.6 g/dL (30-55); Mean Corpuscular Hemoglobin 30.3 pg (27-33); Mean Corpuscular Volume 90.3 fl (85-98); Mean Platelet Volume 9.9 fL (7.4-10.4); Monocytes # 0.3 10^3/uL (0.2-0.9); Monocytes % 5.4 %; Neutrophils # 3.34 10^3/uL (1.8-7.7); Nucleated Red Blood Cells % 0 %; Platelet Count 130 10^3/cmm (157-399); Red Blood Count 4.55 10^6/uL (3.85-5.65); Red Cell Distribution Width 17.2 % (12.1-15.1); White Blood Count 4.78 10^3/uL (3.29-11.43)
[2023-09-27 13:31] LABS: Troponin(5th) Baseline 10 ng/L (0-10)
[2023-09-27 13:34] LABS: Alanine Aminotransferase 13 U/L (0-33); Albumin Level 3.8 g/dL (3.5-5.2); Alkaline Phosphatase 103 U/L (35-105); Anion Gap 16.9 (5-19); Aspartate Amino Transferase 22 U/L (0-32); Blood Urea Nitrogen 8 mg/dL (6-20); Calcium 7.9 mg/dL (8.5-10.5); Carbon Dioxide 26 mmol/L (22-29); Chloride 98 mmol/L (98-107); Creatinine Clr Calc Pharmacy 116.2689; Globulin 2.7 g/dL (1.3-4.6); Glomerular Filtration Rate 104.2 mL/min (90-130); Glucose 96 mg/dL (65-115); Osmolality Calculated 284 mOsm/kg (285-295); Sodium 138 mmol/L (136-145); Total Bilirubin 0.6 mg/dL (0.15-1.2); Total Protein 6.5 g/dL (6.6-8.7)
[2023-09-27 13:36] LABS: Potassium 2.9 mmol/L (3.5-5.1)
[2023-09-27] MEDS: potassium chloride oral liq 20 mEq/15 mL UDC 40 MEQ PO (13:46)
[2023-09-27 13:59] LABS: Magnesium 1.5 mg/dL (1.7-2.3)
--- NOTE | 2023-09-27 14:29 | ECG_ITS ---
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 Measurements Intervals [place] Rate: 87 P: 258 NC: 222 QRS: 51 QRSD: 79 T: 51 QT: 421 QTc: 507 Interpretive Statements ELECTRONIC ATRIAL PACEMAKER POSSIBLE RIGHT VENTRICULAR CONDUCTION DELAY [RSR (QR) IN V1/V2] MINIMAL ST DEPRESSION [0.025+ mV ST DEPRESSION] Compared to ECG 09/27/2023 12:00:03 Ventricular-paced complex(es) or rhythm no longer present ST (T wave) deviation still present Electronically Signed On 09-27-2023 16:16:44 CDT by Ephraim Herrera M.D. [email or web address]
[2023-09-27 15:58] LABS: Troponin 5 2HR 8.86 ng/L (0-10)
[2023-09-27 16:03] LABS: Troponin 5 2HR Delta -1.14 ABS# (0-10)
== END 2023-09-27 16:36 | disposition home or self-care (01) ==
PROVIDERS: Emergency Provider Family Medicine; PCP Family Medicine
DX: R07.89 Other chest pain (principal); Z79.01 Long term (current) use of anticoagulants; Z79.02 Long term (current) use of antithrombotics/antiplatelets; F17.210 Nicotine dependence, cigarettes, uncomplicated; I25.10 Atherosclerotic heart disease of native coronary artery without angina pectoris; I25.2 Old myocardial infarction; Z95.0 Presence of cardiac pacemaker; I11.9 Hypertensive heart disease without heart failure; I43 Cardiomyopathy in diseases classified elsewhere
CPT/HCPCS: 36415; 71045; 80053; 83735; 84484; 85025; 93005; 99285

== ENCOUNTER 2023-10-06 08:09 | Outpatient (CLI) | payer BC, MEDICAID, SELFPAY ==
--- NOTE | 2023-10-06 08:15 | MM_ITS ---
WS: [id number] Bilateral screening 3D tomosynthesis digital mammogram, 10/06/2023 Clinical Data: SCREENING Comparison: None. Findings: The breast parenchymal pattern shows fibroglandular tissue. No spiculated masses or clustered calcifi cations are seen. There are no secondary signs of carcinoma. There are vascular calcifications in the right breast. There is a pacemaker generator in the left axilla. Impression: 1. Negative bilateral mammogram with no prior exam for review. 2. Recommend annual screening mammograms. MM/[place] [id number] BIRADS: 1-Negative FOLLOW UP: 1 Year Follow-up The CAD cash checker was used.
--- NOTE | 2023-10-06 08:15 | CT_ITS ---
WS: [id number] LDCT LUNG CANCER SCREENING TECHNIQUE: Noncontrast CT of the chest with coronal and sagittal reformatted images. CLINICAL INFORMATION: NICOTINE DEPENDENCE, CIGARETTES COMPARISON: None. DLP: 54.99 mGy.cm DIvol: Mean CTDIvol: 0.90 (mGy) All CT scans at [facility] use at least one of these dose optimization techniques: automat ed exposure control; mA and/or kV adjustment per patient size (includes targeted exams where dose is matched to clinical indication); or iterative reconstruction. FINDINGS: Chronic paraseptal emphysematous changes. Few calcified granulomas. Subsegmental atelectasi s LEFT lower lobe. No suspicious pulmonary parenchymal abnormalities. Normal caliber thoracic aorta. Aortic calcification. Calcified RIGHT hilar lymph nodes. Aortic calcif ication. Coronary calcification. A few prominent anterior mediastinal lymph nodes not pathologically enlarged. No axillary lymphadenopathy. Adrenal glands are normal. Small esophageal hernia. Splenic artery calcification. Cardiac pacer. IMPRESSION: CT/CT lung screening [id number] LUNG-RADS: 2-Benign Appearance or Behavior FOLLOW UP: 12 Month: Continue annual screening with LDCT
== END 2023-10-06 08:10 | disposition home or self-care (01) ==
PROVIDERS: PCP Family Medicine; Visit Provider Family Medicine
DX: Z12.31 Encounter for screening mammogram for malignant neoplasm of breast (principal); Z12.2 Encounter for screening for malignant neoplasm of respiratory organs; F17.210 Nicotine dependence, cigarettes, uncomplicated
CPT/HCPCS: 71271; 77063; 77067

== ENCOUNTER 2023-11-12 03:16 | Emergency (ER) | payer SELFPAY ==
[2023-11-12 03:18] VITALS: BP 122/79; PULSE 90; RESP 16; TEMP 36.7; O2SAT 95
--- NOTE | 2023-11-12 03:38 | USR_ITS ---
PROCEDURE INFORMATION: Exam: US Duplex Right Lower Extremity Arteries Or Arterial Bypass Grafts Exam date and time: 11/12/2023 5:07 AM Age: 53 years old Clinical indication: Pain; Leg, upper; Right; Prior surgery; Surgery date: Post-operative (0-2 days); Surgery type: S/P ablation; Additional info: Bruising and pain S/P ablation. Question pseudoaneurysm. TECHNIQUE: Imaging protocol: Right Real-time duplex scan of the arteries or arterial bypass grafts of the right lower extremity with 2-D hill scale, color Doppler flow and spectral waveform analysis. Images documented and saved. COMPARISON: No relevant prior studies available. FINDINGS: Targeted imaging was performed in the area of clinical interest in the right groin. The right common femoral artery appears patent, with triphasic flow. The common femoral vein is also patent. No visible pseudoaneurysm is identified on the provided images. 28 x 11 x 28 mm hypoechoic region is seen anterior/superior to the region of the common femoral artery and vein. While nonspecific, this could represent post-procedural hematoma. Reportedly, the patient is tender in this region. US/[place] [id number] IMPRESSION: 1. No visible pseudoaneurysm in the right groin, see above discussion. 2. Other details/findings discussed above.
[2023-11-12 03:39] VITALS: BP 126/86; PULSE 88; RESP 16; O2SAT 96
--- NOTE | 2023-11-12 03:41 | W.ED.SKABFB ---
HPI - Skin/Abscess/Foreign Bdy General: Chief complaint: Skin/Abscess/Foreign Body Stated complaint: Bruise on Groin Time Seen by Provider: 11/12/23 03:20 History of Present Illness: 53-year-old female with a history of atrial fibrillation. On Monday, 2 days ago now, she had an ablation done in [facility]. She has since developed some diarrhea, and has been up and down to the toilet several times. She noticed an expanding bruise to her right groin where her incision was, that was not there before, and this concerned her. She has not had a significant increase in pain. No fever. No active bleeding of the skin. Associated symptoms: Deny fever(s) or vomiting Review of Systems Const: Denies: fever(s) Card: Denies: chest pain or palpitations Resp: Denies: dyspnea GI: Reports: diarrhea; Denies: abdominal pain or vomiting Skin/Breast: Reports: rash PFSH ED PFSH: Medical History Sjogren's syndrome with inflammatory arthritis Coronary artery disease ST elevation [place] (STEMI) STEMI (ST elevation myocardial infarction) Hx of cardiac pacemaker Immunization counseling High risk medication use SS-A antibody positive Inflammatory arthritis delivery delivered SVT (supraventricular tachycardia) Pacemaker Cardiomyopathy Hypertension Atrial fibrillation Radiculopathy delivery delivered Surgical History History of partial hysterectomy H/O dilation and curettage Family History Other CAD (coronary artery disease) Cancer Diabetes Psychiatric illness Social History Smoking and tobacco/nicotine status: current every day tobacco/nicotine user cigarettes Packs smoked per day: 1 Years cigarettes smoked: 39 Alcohol intake: never Substance/Drug Use: never Physical Exam Const: COMMON NORMALS: no acute distress GENERAL APPEARANCE: cooperative; not ill appearing and not frail appearing HENMT: COMMON NORMALS: normocephalic, atraumatic and Normal external nose present HEAD & SCALP: normocephalic and atraumatic FACE & SINUS: normal facial exam and face symmetric NOSE: Normal external nose present Eye: COMMON NORMALS: Equal, round and reactive pupils present and EOMs intact bilaterally PUPIL: Yes Equal, round and reactive pupils present Neck/C-Spine: GENERAL: Yes trachea midline Chest: CHEST: Yes Symmetrical chest wall rise Resp: COMMON NORMALS: normal respiratory effort, No retractions, No use of accessory muscles and clear to auscultation bilaterally AUSCULTATION: clear to auscultation bilaterally Cardio: COMMON NORMALS: regular rate and regular rhythm RATE: regular rate RHYTHM: regular rhythm GI: COMMON NORMALS: Normal to inspection, nondistended, normoactive bowel sounds present Extremity: COMMON NORMALS: no pedal edema Neuro: JORDAN COMA SCALE: document GCS findings Jordan coma scale eye opening: Spontaneous [facility] coma scale verbal response: Orientated Jordan coma scale motor response: Obey commands Jordan coma scale total score: 15 SENSORY EXAM: Yes extremities (intact) Psych: COMMON NORMALS: speech normal SPEECH: Yes normal speech Skin: NARRATIVE SKIN EXAM: 3 cm bruise noted to right groin. No definite mass. Course Vital Signs: Vital signs: Vital Signs Temperature 98.0 F 11/12/23 03:18 Pulse Rate 85 11/12/23 06:03 Respiratory Rate 14 11/12/23 06:20 Blood Pressure 105/74 11/12/23 06:20 Pulse Oximetry 94 11/12/23 06:03 Oxygen Delivery Me thod Room Air 11/12/23 03:18 MDM - Skin/Abscess/Foreign Bdy Medicial Decision Making She is afebrile. Vitals are good. Hb is 11. No evidence active bleeding. No pseudoaneurysm on US. Small dermal hematoma present only. Wound is re-dressed and will allow dc to outpt follow up. Lab Data 11/12/23 03:57 11/12/23 03:57 Radiology Impressions Arterial/Peripheral Duplex 11/12/23 03:38 IMPRESSION: 1. No visible pseudoaneurysm in the right groin, see above discussion. 2. Other details/findings discussed above. Laboratory Results WBC 5.63 10^3/uL (3.29-11.43) 11/12/23 03:57 RBC 3.68 10^6/uL (3.85-5.65) L 11/12/23 03:57 Hgb 11.30 g/dL (11.27-16.99) 11/12/23 03:57 Hct 34.5 % (36-47) L 11/12/23 03:57 MCV 93.8 fl (85-98) 11/12/23 03:57 MCH 30.7 pg (27-33) 11/12/23 03:57 MCHC 32.8 g/dL (30-55) 11/12/23 03:57 RDW 18.3 % (12.1-15.1) H 11/12/23 03:57 Plt Count 178 10^3/cmm (157-399) 11/12/23 03:57 MPV 12.1 fL (7.4-10.4) H 11/12/23 03:57 Neut % (Auto) 82.9 % 11/12/23 03:57 Lymph % (Auto) 8.9 % 11/12/23 03:57 [place] % (Auto) 7.3 % 11/12/23 03:57 Eos % (Auto) 0.0 % 11/12/23 03:57 Baso % (Auto) 0.2 % 11/12/23 03:57 Neut # (Auto) 4.67 10^3/uL (1.8-7.7) 11/12/23 03:57 Lymph # (Auto) 0.5 10^3/uL (0.8-4.8) L 11/12/23 03:57 [place] # (Auto) 0.4 10^3/uL (0.2-0.9) 11/12/23 03:57 Eos # (Auto) 0.0 10^3/uL (0.0-0.8) 11/12/23 03:57 Baso # (Auto) 0.0 10^3/uL (0.0-0.1) 11/12/23 03:57 Nucleated RBC % (auto) 0 % 11/12/23 03:57 Nucleated RBCs # 0.0 /100WBC 11/12/23 03:57 PT 13.00 SECONDS (12.1-14.9) 11/12/23 03:57 INR 0.96 (0.8-1.2) 11/12/23 03:57 APTT 24.6 SECONDS (23.9-36.7) 11/12/23 03:57 Sodium 138 mmol/L (136-145) 11/12/23 03:57 Potassium 3.8 mmol/L (3.5-5.1) 11/12/23 03:57 Chloride 101 mmol/L (98-107) 11/12/23 03:57 Carbon Dioxide 25 mmol/L (22-29) 11/12/23 03:57 Anion Gap 15.8 (5-19) 11/12/23 03:57 BUN 23 mg/dL (6-20) H 11/12/23 03:57 Creatinine 0.7 mg/dL (0.5-0.9) 11/12/23 03:57 GFR Calculation 87.2 mL/min (90-130) L 11/12/23 03:57 Glucose 141 mg/dL (65-115) H 11/12/23 03:57 Calculated Osmolality 292 mOsm/kg (285-295) 11/12/23 03:57 Calcium 8.1 mg/dL (8.5-10.5) L 11/12/23 03:57 Total Bilirubin 0.8 mg/dL (0.15-1.2) 11/12/23 03:57 AST 85 U/L (0-32) H 11/12/23 03:57 ALT 25 U/L (0-33) 11/12/23 03:57 Alkaline Phosphatase 105 U/L (35-105) 11/12/23 03:57 Total Protein 6.5 g/dL (6.6-8.7) L 11/12/23 03:57 Albumin 3.5 g/dL (3.5-5.2) 11/12/23 03:57 Globulin 3.0 g/dL (1.3-4.6) 11/12/23 03:57 Blood Type B Negative 11/12/23 03:57 Rho(D) Type Rh negative 11/12/23 03:57 Antibody Screen Negative 11/12/23 03:57 All radiology interpretation(s) finalized by discharge Discharge Plan Discharge Patient Disposition: Home Clinical Impression: Hematoma of right inguinal region Condition: Stable Prescriptions: No Action gabapentin 300 mg capsule 300 mg PO BID Qty: 60 3RF Eliquis 5 mg tablet 5 mg PO BID Qty: 180 6RF atorvastatin 40 mg tablet 40 mg PO DAILY Qty: 90 3RF clopidogrel 75 mg tablet 75 mg PO DAILY Qty: 90 3RF furosemide 40 mg tablet 40 mg PO DAILY PRN (Reason: edema) Qty: 30 1RF metoprolol succinate [Toprol XL] 25 mg tablet extended release 24 hr 25 mg PO DAILY Qty: 90 1RF potassium chloride [Klor-Con M20] 20 mEq tablet,ER particles/crystals 20 meq PO DAILY PRN (Reason: take with Lasix) Qty: 30 1RF hydroxyzine pamoate 25 mg capsule 25 mg PO BID PRN (Reason: Anxiety) lisinopril 5 mg tablet See Rx Instructions .ROUTE .COMPLEX Qty: 90 0RF Dose Instruction: Take 2 tablets by mouth once daily Rx Instructions: Take 2 tablets by mouth once daily leflunomide 20 mg tablet 20 mg PO DAILY Qty: 30 3RF isosorbide mononitrate 30 mg tablet extended release 24 hr 30 mg PO DAILY Qty: 30 0RF prednisone 20 mg tablet 40 mg PO DAILY PRN (Reason: joint pain flare) Rx Instructions: take 2 tab daily for 7 days as needed for arthritis flare PO PRN; Discharge Orders: Discharge ED (Routine); Ordered 11/12/23 Ordered By: Jamison Blair Referrals: Izabela Fields DO [Primary Care Provider] - Patient Instructions: Hematoma (ED), Opioid Safety, Pain Management Activity Restrictions/Additional Instructions: Return for fever greater than 100 disease, worsening groin pain, any other concerning symptoms. Call your doctor on Monday. Coding Level of Care Code ED Apiculture Teacher for Jose Carlos Arana
[2023-11-12 04:04] LABS: Basophils % 0.2 %; Hematocrit 34.5 % (36-47); Lymphocytes # 0.5 10^3/uL (0.8-4.8); Lymphocytes % 8.9 %; Mean Corpuscular HGB Conc 32.8 g/dL (30-55); Mean Corpuscular Hemoglobin 30.7 pg (27-33); Mean Corpuscular Volume 93.8 fl (85-98); Mean Platelet Volume 12.1 fL (7.4-10.4); Monocytes # 0.4 10^3/uL (0.2-0.9); Monocytes % 7.3 %; Neutrophils # 4.67 10^3/uL (1.8-7.7); Neutrophils % 82.9 %; Nucleated Red Blood Cells % 0 %; Platelet Count 178 10^3/cmm (157-399); Red Blood Count 3.68 10^6/uL (3.85-5.65); Red Cell Distribution Width 18.3 % (12.1-15.1); White Blood Count 5.63 10^3/uL (3.29-11.43)
[2023-11-12 04:15] LABS: INR 0.96 (0.8-1.2); Partial Thromboplastin Time 24.6 SECONDS (23.9-36.7)
[2023-11-12 04:24] LABS: Alanine Aminotransferase 25 U/L (0-33); Albumin Level 3.5 g/dL (3.5-5.2); Alkaline Phosphatase 105 U/L (35-105); Anion Gap 15.8 (5-19); Aspartate Amino Transferase 85 U/L (0-32); Blood Urea Nitrogen 23 mg/dL (6-20); Calcium 8.1 mg/dL (8.5-10.5); Carbon Dioxide 25 mmol/L (22-29); Chloride 101 mmol/L (98-107); Creatinine Clr Calc Pharmacy 95.4483; Glomerular Filtration Rate 87.2 mL/min (90-130); Glucose 141 mg/dL (65-115); Osmolality Calculated 292 mOsm/kg (285-295); Potassium 3.8 mmol/L (3.5-5.1); Sodium 138 mmol/L (136-145); Total Bilirubin 0.8 mg/dL (0.15-1.2); Total Protein 6.5 g/dL (6.6-8.7)
[2023-11-12 04:36] VITALS: BP 109/63; PULSE 86; RESP 16; O2SAT 91
[2023-11-12 05:30] VITALS: BP 120/73; PULSE 86; RESP 16; O2SAT 94
[2023-11-12 06:03] VITALS: BP 105/75; PULSE 85; RESP 16; O2SAT 94
[2023-11-12 06:20] VITALS: BP 105/74; RESP 14
== END 2023-11-12 06:28 | disposition home or self-care (01) ==
PROVIDERS: Emergency Provider Emergency Medicine; PCP Family Medicine
DX: L76.32 Postprocedural hematoma of skin and subcutaneous tissue following other procedure (principal); Z79.01 Long term (current) use of anticoagulants; Z79.02 Long term (current) use of antithrombotics/antiplatelets; I25.10 Atherosclerotic heart disease of native coronary artery without angina pectoris; I25.2 Old myocardial infarction; Z95.0 Presence of cardiac pacemaker; I11.9 Hypertensive heart disease without heart failure; I43 Cardiomyopathy in diseases classified elsewhere; F17.210 Nicotine dependence, cigarettes, uncomplicated
CPT/HCPCS: 80053; 85025; 85610; 85730; 86850; 86900; 93926; 99284

== ENCOUNTER → 2024-01-07 10:38 | Outpatient (BNVA) | payer BC, MEDICAID, SELFPAY | PROVIDERS: PCP Family Medicine; Visit Provider Emergency Medicine | DX: J02.9 Acute pharyngitis, unspecified (principal) | CPT/HCPCS: 87071; 87880 ==

== ENCOUNTER 2024-01-23 14:20 | Outpatient (CLI) | payer BC, MEDICAID, SELFPAY ==
--- NOTE | 2024-01-23 14:45 | USCV_ITS ---
Colleen Nielsen Age: 53 Gender: F : 1970 Exam Date: 01/23/2024 15:10 Ordering Phys: Sophie Kirk MD ([email or web address]) Technologist: CT Exam Location: [facility] [place] Indication: cardiomyopathy BP: 134 / 78 HR: 89 Rhythm: Sinus Technical Quality: Adequate MEASUREMENTS (Male / Female) Normal Values 2D ECHO LV Ejection Fraction MOD 4C 51.8 % LV Ejection Fraction MOD 2C 63.1 % LV Ejection Fraction 2C AL 67.4 % RA Systolic Volume 4C AL 32.4 ml RA Systolic Volume 4C MOD 31.4 ml LA Sys Volume AL 32.2 cm cubed LA Sys Volume Index AL 17.5 cm cubed/m squared M-MODE LA Ao Ratio MM 1.4 AV Cusp Separation MM 2.1 cm DOPPLER AV Peak Velocity 110.0 cm/s LVOT Peak Velocity 91.0 cm/s MV Peak Velocity 71.0 cm/s MV Area PHT 3.3 cm squared Mitral E to A Ratio 1.0 TR Peak Velocity 211.0 cm/s TR Peak Gradient 17.8 mmHg TV Peak E Velocity 66.0 cm/s Right Atrial Pressure 3.0 mmHg Pulmonary Artery Systolic Pressu 20.8 mmHg PV Peak Velocity 82.0 cm/s FINDINGS Left Ventricle Mild diffuse hypokinesia of the left ventricle with ejection fraction of around 50%,( visual) Right Ventricle The right ventricle is normal in size and function. Right Atrium The right atrium is normal in size. Left Atrium The left atrium is normal in size. Mitral Valve Trace mitral valve regurgitation. Aortic Valve No gross abnormalities noted Tricuspid Valve Trace tricuspid valve regurgitation. Estimated pulmonary artery peak systolic pressure 21 millimeters of mercury Pulmonic Valve No gross abnormalities noted Pericardium Normal pericardium without effusion. Aorta Normal ascending aorta dimension. IVC The inferior vena cava appears normal. CONCLUSIONS Mild diffuse hypokinesia of the left ventricle with ejection fraction of around 50%,( visual). Trace of mitral and tricuspid regurgitation. Estimated pulmonary artery peak systolic pressure 21 millimeters of mercury. Compared to the study from 05/04/2023 there may not be a significant change Dr Sophie Kirk MD [facility] (Electronically Signed) Final Date: 26 January 2024 21:22 S
== END 2024-01-23 14:21 | disposition home or self-care (01) ==
LOC: RAD 14:20
PROVIDERS: PCP Family Medicine; Visit Provider Internal Medicine Cardiovascular Disease
DX: I42.0 Dilated cardiomyopathy (principal); I48.0 Paroxysmal atrial fibrillation
CPT/HCPCS: 93306

== ENCOUNTER 2024-03-12 11:04 | Outpatient (CLI) | payer BC, MEDICAID, SELFPAY ==
[2024-03-12 11:35] LABS: Basophils # 0.1 10^3/uL (0.0-0.1); Basophils % 0.8 %; Eosinophils # 0.3 10^3/uL (0.0-0.8); Eosinophils % 4.3 %; Hematocrit 43.7 % (36-47); Lymphocytes # 2.1 10^3/uL (0.8-4.8); Lymphocytes % 32.6 %; Mean Corpuscular HGB Conc 32.7 g/dL (30-55); Mean Corpuscular Hemoglobin 30.2 pg (27-33); Mean Corpuscular Volume 92.2 fl (85-98); Mean Platelet Volume 10.3 fL (7.4-10.4); Monocytes # 0.5 10^3/uL (0.2-0.9); Neutrophils # 3.62 10^3/uL (1.8-7.7); Nucleated Red Blood Cells % 0 %; Platelet Count 259 10^3/cmm (157-399); Red Blood Count 4.74 10^6/uL (3.85-5.65); Red Cell Distribution Width 16.9 % (12.1-15.1); White Blood Count 6.57 10^3/uL (3.29-11.43)
[2024-03-12 11:56] LABS: Alanine Aminotransferase 11 U/L (0-33); Albumin Level 4.4 g/dL (3.5-5.2); Alkaline Phosphatase 91 U/L (35-105); Aspartate Amino Transferase 12 U/L (0-32); Globulin 3.4 g/dL (1.3-4.6); Glomerular Filtration Rate 33.6 mL/min (90-130); Total Bilirubin 0.4 mg/dL (0.15-1.2); Total Protein 7.8 g/dL (6.6-8.7)
[2024-03-12 12:04] LABS: Anion Gap 20.4 (5-19); Blood Urea Nitrogen 31 mg/dL (6-20); Calcium 9.3 mg/dL (8.5-10.5); Carbon Dioxide 27 mmol/L (22-29); Chloride 97 mmol/L (98-107); Chol HDL Ratio 5.09 mg/dL (0.0-4.40); Cholesterol 163 mg/dL (0-200); Glomerular Filtration Rate 33.6 mL/min (90-130); Glucose 88 mg/dL (65-115); HDL Cholesterol 32 mg/dL (60-100); LDL Cholesterol Calculated 91 mg/dL (50-129); LDL HDL Ratio 2.84 RATIO (0.00-3.22); Osmolality Calculated 296 mOsm/kg (285-295); Potassium 4.4 mmol/L (3.5-5.1); Sodium 140 mmol/L (136-145); Triglycerides 200 mg/dL (0-150)
== END 2024-03-12 11:05 | disposition home or self-care (01) ==
PROVIDERS: PCP Family Medicine; Visit Provider Internal Medicine Rheumatology
DX: Z79.899 Other long term (current) drug therapy (principal); M19.90 Unspecified osteoarthritis, unspecified site
CPT/HCPCS: 36415; 80048; 80061; 80076; 82565; 84443; 85025; 86140

== ENCOUNTER → 2024-04-30 14:52 | Outpatient (BNVA) | payer BC, MEDICAID, SELFPAY | PROVIDERS: PCP Family Medicine; Visit Provider Internal Medicine Rheumatology | DX: M79.671 Pain in right foot (principal) | CPT/HCPCS: 73630 ==

== ENCOUNTER → 2024-08-01 15:24 | Outpatient (BNVA) | payer BC, MEDICAID, SELFPAY | PROVIDERS: PCP Family Medicine; Visit Provider Specialist | DX: G62.89 Other specified polyneuropathies (principal); G72.9 Myopathy, unspecified; M19.90 Unspecified osteoarthritis, unspecified site; Z79.899 Other long term (current) drug therapy | CPT/HCPCS: 36415; 80076; 82565; 82607; 82746; 83036; 85025; 85651; 86140 ==

== ENCOUNTER → 2024-08-19 09:01 | Outpatient (BNVA) | payer BC, MEDICAID, SELFPAY | PROVIDERS: PCP Family Medicine; Visit Provider Nurse Practitioner Family | DX: Z45.010 Encounter for checking and testing of cardiac pacemaker pulse generator [battery] (principal) | CPT/HCPCS: 36415; 80048; 85025; 85610 ==

== ENCOUNTER 2024-09-30 05:43 | Outpatient (CLI) | payer BC, MEDICAID, SELFPAY ==
[2024-09-30] VITALS (14 sets, daily range): BP systolic 105–159; BP diastolic 65–103; PULSE 67–86; RESP 16–18; TEMP 36.4–36.9; O2SAT 92–96; BMI 27.3; BMI 29.0
[2024-09-30 06:25] LABS: Basophils % 0.3 %; Eosinophils # 0.2 10^3/uL (0.0-0.8); Eosinophils % 2.8 %; Hematocrit 42.4 % (36-47); Lymphocytes # 1.8 10^3/uL (0.8-4.8); Lymphocytes % 31.1 %; Mean Corpuscular HGB Conc 33.5 g/dL (30-55); Mean Corpuscular Hemoglobin 31.7 pg (27-33); Mean Corpuscular Volume 94.6 fl (85-98); Mean Platelet Volume 9.9 fL (7.4-10.4); Monocytes # 0.3 10^3/uL (0.2-0.9); Monocytes % 5.7 %; Neutrophils # 3.44 10^3/uL (1.8-7.7); Neutrophils % 59.6 %; Nucleated Red Blood Cells % 0 %; Platelet Count 200 10^3/cmm (157-399); Red Blood Count 4.48 10^6/uL (3.85-5.65); Red Cell Distribution Width 13.8 % (12.1-15.1); White Blood Count 5.78 10^3/uL (3.29-11.43)
[2024-09-30 06:36] LABS: Anion Gap 15.7 (5-19); Blood Urea Nitrogen 16 mg/dL (6-20); Calcium 8.9 mg/dL (8.5-10.5); Carbon Dioxide 25 mmol/L (22-29); Chloride 102 mmol/L (98-107); Glomerular Filtration Rate 74.5 mL/min (90-130); Glucose 99 mg/dL (65-115); Osmolality Calculated 289 mOsm/kg (285-295); Potassium 3.7 mmol/L (3.5-5.1); Sodium 139 mmol/L (136-145)
--- NOTE | 2024-09-30 06:39 | P.HP_ITS ---
Providers/Chief Complaint 2 Primary Care Provider: Izabela Fields DO Chief Complaint: Z45.010 History of Present Illness Colleen Nielsen is a 54 year old female with a history of atherosclerotic heart diseas/high blood pressure/intermittent atrial fibrillation, symptomatic bradycardia, status post permanent pacer implantation, was found relative replace medication on the device in July of this year. For further management of her condition, she requires a pacemaker revision. This patient was on Eliquis. It was discontinued on last Monday. She denies any chest pain or chest tightness. No unusual shortness of breath. No fever, chills or cough. Review of Systems 2 Narrative: CONSTITUTIONAL: No fever or chills. EYES: No blurring of vision or other visual disturbances lately. ENT: No hoarseness of voice, auditory disturbances or sore throat. CARDIOVASCULAR: As mentioned above. RESPIRATORY: No significant cough. GASTROINTESTINAL: No hematemesis or melena. GENITOURINARY: No dysuria or hematuria. INTEGUMENTARY: No skin rashes or history of skin cancer. NEURO: No transient ischemic attacks or amaurosis. PSYCHIATRIC: No history of psychosis or major depression. HEMATOLOGIC: No bleeding disorders or significant anemia. ENDOCRINE: No history of polyuria or polydipsia. MUSCULOSKELETAL: No recent joint pain or swelling. ALLERGY/IMMUNOLOGY: As mentioned above. Medications/Allergies Home Medications ?Medication ?Instructions ?Recorded ?Confirmed ?Last Taken ?Type hydroxyzine pamoate 25 mg capsule 25 mg PO BID PRN Anx iety 05/12/23 09/27/24 Unknown History furosemide 40 mg tablet 40 mg PO DAILY PRN edema #30 tabs 07/05/23 09/27/24 Unknown Rx potassium chloride 20 mEq 20 meq PO DAILY PRN take wit h 07/05/23 09/27/24 09/27/23 Rx tablet,extended Lasix #30 tabs release(part/cryst) (Klor-Con M) prednisone 20 mg tablet 40 mg PO DAILY PRN joint ammon n flare 09/27/23 09/27/24 Unknown History acetaminophen 500 mg tablet 1,000 mg (2 x 500 mg) PO Q 8H PRN 01/07/24 09/27/24 Unknown Rx (Tylenol Extra Strength) pain #30 tabs lisinopril 20 mg tablet 20 mg PO DAILY #90 tabs 10/09/30/24 09/30/24 05:00 Rx famotidine 20 mg tablet 20 mg PO DAILY 08/01/2409/1409/30/24 05:00 History fluticasone propionate 50 intranasal 08/01/24 09/17/24 Unknown History mcg/actuation nasal spray,suspension loratadine 10 mg tablet 10 mg PO DAILY 08/01/2409/14 Unknown History isosorbide mononitrate 30 mg 30 mg PO DAILY 08/19/24 0 09/27/24 09/30/24 05:00 History tablet,extended release 24 hr metoprolol succinate 25 mg 50 mg (2 x 25 mg) PO DAILY #90 tabs 08/19/24 09/27/24 09/30/24 05:00 Rx tablet,extended release 24 hr (Toprol XL) mecobalamin (vitamin B12) 10,000 1,000 mcg IM .COMPLEX #4 ea 08/21/24 09/27/24 Unknown Rx mcg solution for injection atorvastatin 40 mg tablet 40 mg PO DAILY #90 tabs 08/1709/27/24 09/30/24 05:00 Rx adalimumab 40 mg/0.8 mL 40 mg (0.8 mL) SUBCUT .Q7day s #4 ea 08/27/24 09/27/24 Unknown Rx subcutaneous pen kit (Humira Pen) gabapentin 300 mg capsule See Rx Instructions PO .COMP ARIEL 08/27/24 09/27/24 09/30/24 05:00 Rx #90 caps clopidogrel 75 mg tablet 75 mg PO DAILY #90 tabs 08/1809/27/24 09/30/24 05:00 Rx apixaban 5 mg tablet (Eliquis) See Rx Instructions .Ro [place] 09/19/24 09/30/24 09/30/24 05:00 Rx .COMPLEX #60 tabs Allergies Allergy/AdvReac Type Severity Reaction Status Date / Time Sulfa (Sulfonamide Allergy Severe ALGY-Swell Verified 09/27/24 09:23 Antibiotics) Lip/Tongue/Throat leflunomide AdvReac Intermediate hair loss Verified 09/27/24 09:23 PFSH Acute 2 PFSH: Medical History Sjogren's syndrome with inflammatory arthritis Coronary artery disease ST elevation NC (STEMI) STEMI (ST elevation myocardial infarction) Hx of cardiac pacemaker Immunization counseling High risk medication use SS-A antibody positive Inflammatory arthritis delivery delivered SVT (supraventricular tachycardia) Pacemaker Cardiomyopathy Hypertension Atrial fibrillation Radiculopathy delivery delivered Surgical History History of partial hysterectomy H/O dilation and curettage Family History Other CAD (coronary artery disease) Cancer Diabetes Psychiatric illness Social History Smoking and tobacco/nicotine status: never used tobacco/nicotine Alcohol intake: current Alcohol intake frequency: holidays/special occasions only Substance/Drug Use: never Vitals/I&O/Wt Last Vital Signs Temp 98.5 F 09/30/24 06:24 Pulse 86 09/30/24 06:24 Resp 17 09/30/24 06:24 BP 159/103 09/30/24 06:24 Pulse Ox 93 09/30/24 06:24 O2 Del Method Room Air 09/30/24 06:24 Weight last 48 hrs Weight 175 lb Physical Exam 2 Narrative: GENERAL: The patient is alert and oriented times three. Not in any acute distress. HEENT: No significant pallor, icterus or lymphadenopathy.Oral cavity: There are no mucous membrane lesions. NECK: Trachea appears to be central. No masses noted. No JVD or thyromegaly appreciated. RESPIRATORY: Chest is symmetrical. No intercostals muscle retraction or any accessory muscle activation. There is no chest wall tenderness. Breath sounds are heard bilaterally. No rales or rhonchi heard. No evidence of any consolidation. The pacemaker site has no hematoma bleeding] BREASTS: Deferred. HEART: The heart sounds are normal. No S3 or S4. No significant murmurs. No pericardial rub ABDOMEN: No vessel pulsations or distention. No tenderness. No organomegaly appreciated. Bowel sounds are normally heard. : Deferred. RECTAL: Deferred. LYMPHATIC: No lymphadenopathy noted in the neck. EXTREMITIES: No edema or cyanosis. No clubbing. MUSCULOSKELETAL: No acute joint deformities or swelling SKIN: There are no significant rashes or ecchymosis NEUROPSYCHIATRIC: The patient is alert and oriented x3. Appears to be in a good mood. No tremors or rigidity noted. Data 09/30/24 06:12 09/30/24 06:12 A&P Assessment and plan (1) Atrial fibrillation: Patient is currently in AV paced rhythm. Discontinue the Eliquis more than 48 hours ago. Hemodynamically stable. Qualifiers: Atrial fibrillation type: paroxysmal Qualified Code(s): I48.0 - Paroxysmal atrial fibrillation (2) Cardiomyopathy: Most recent LV ejection fraction was 50% by echocardiogram in March of last year. Qualifiers: Cardiomyopathy type: dilated Qualified Code(s): I42.0 - Dilated cardiomyopathy (3) Pacemaker at end of battery life: The patient went into LISA in July 2024. She has 95% a paced and 1 to 2% V pacing (4) Atherosclerosis of coronary artery of [place] heart without angina pectoris: Since the patient has no specific symptoms of coronary insufficiency, is advised to continue on the current medications. We will continue on the risk modifying measures. Advised to contact our office, if the patient develop any significant chest pain or other ischemic symptoms Qualifiers: Coronary Disease-Associated Artery/Lesion type: [place] artery Qualified Code(s): I25.10 - Atherosclerotic heart disease of [place] coronary artery without angina pectoris Plan Patient is good to have the pacemaker revision today. We may have to revise the pocket for a bigger device to increase the longevity. The risk of bleeding, hematoma, vascular injury, infection, renal failure and other concomitant complications were explained in detail. The patient understood this well and consented to proceed. Patient will be kept overnight for IV antibiotics and may be discharged home tomorrow PDMP PDMP Reviewed: Not Reviewed Attestations 2 Medical Necessity Statement*: Patient needs overnight stay and possible discharge home tomorrow Coding Level of Care Code 73257 Diagnoses Paroxysmal atrial fibrillation I48.0 Atrial fibrillation type: paroxysmal Dilated cardiomyopathy I42.0 Cardiomyopathy type: dilated Pacemaker at end of battery life Z45.010 Atherosclerosis of [place] coronary artery of [place] heart without angina pectoris I25.10 Coronary Disease-Associated Artery/Lesion type: [place] artery
--- NOTE | 2024-09-30 06:44 | W.PM.OPSUD ---
Surgery/Procedure H&P Update DATE OF PROCEDURE: September 30, 2024 DATE H&P PERFORMED: 09/30/24 H&P UPDATE INFORMATION: I have reviewed H&P completed within last 30 days, I have examined patient prior to procedure and No changes to prior documentation PREOP DIAGNOSIS: Pacemaker LISA PRIMARY INDICATION FOR PROCEDURE: Intermittent atrial fibrillation, symptomatic bradycardia, status post permanent pacer implantation, pacemaker LISA PLANNED PROCEDURE: Operation Date: 09/30/24 07:00 Proposed Procedures p Pacemaker Generator Change - REM/REP Dual PPM(Not Applicable) - Sophie Kirk MD PATIENT REASSESSED PRIOR TO SEDATION, WITH NO CHANGE NOTED: Yes PHYSICAL EXAM: alert, oriented x 3, clear to auscultation bilaterally and regular rate & rhythm AIRWAY EVAL/ANESTHESIA PLAN: normal airway, see other exam findings, ASA III, Monitored Anesthesia, Local Anesthesia, Risks, benefits & alternatives of sedation and/or procedure discussed and Patient agrees to continue as planned
--- NOTE | 2024-09-30 08:14 | P.OP_ITS ---
Operative Report Date of procedure: September 30, 2024 Surgeon: Sophie Kirk MD Procedure: PROCEDURE: PACEMAKER REVISION PREOPERATIVE DIAGNOSIS: Pacemaker elective replacement indication. POSTOPERATIVE DIAGNOSIS: Pacemaker elective replacement indication. ESTIMATED BLOOD LOSS: None COMPLICATIONS: None. BRIEF HISTORY: The patient is a 54-year-old white female who had a permanent pacemaker implantation for symptomatic bradycardia/intermittent atrial fibrillation. The patient was found to have elective replacement indication, during routine office followup evaluation. For further management of patient's condition for the symptomatic bradycardia, the patient required a pacemaker revision. Patient required a dual-chamber pacemaker for symptom relief and the need for AV synchrony The procedure was explained to the patient in detail with the risks and benefits. The risks of bleeding, hematoma, vascular injury, infection and other concomitant complications were explained in detail, which the patient understood well and consented to proceed. PROCEDURES PERFORMED: 1. Explantation of the old pacemaker generator. 2. Implantation of the new generator. The patient brought to the Cardiac Patient Care Secretary. The left side of the neck and the subclavian area were cleaned and draped in a sterile fashion. 1% Xylocaine was used for local anesthetic agent. A 2 inch long incision was made just below the previous pacemaker scar. By sharp and blunt dissection, the pacemaker pocket was accessed. The old generator was delivered from the pocket. The generator was detached from the lead. The new Medtronic generator was attached to the lead. The pacemaker pocket was copiously irrigated with vancomycin solution. Complete hemostasis was achieved. The lead was positioned behind the generator and the generator was attached to the pectoralis fascia by suturing with 0 Surgilon. Sponge counts were confirmed. The pacemaker pocket was closed in layers. Skin was approximated using 4-0 Vicryl. EXPLANTED DEVICE: Pacemaker Generator: Brand: [employer]/Accolade. Model number: L311. Serial number: [id number]. Date of implant: 10/17/2016 IMPLANTED DEVICES: Atrial lead: Date of implantation: 10/17/2016 Model number: [id number] Serial number: [id number] Make: [employer]/Ingevity. Ventricular lead: Date of implantation: 10/17/2016 Model number: [id number] Serial number: [id number] Make: [employer]/Ingevity. Implanted Generator: Date of implantation : 09/30/2024 Brand: Accolade [address] Model number: [id number] Serial number: [id number] Make: [employer] Stimulation Threshold: The ventricular sensing was greater than 25 millivolts. Ventricular lead impedance was 1404 ohms and the pacing threshold was 1.2 volts at 0.4 milliseconds. The atrial sensing was 1.1 millivolts. Atrial lead impedance was 782 ohms and the pacing threshold was 1.0 volts at 0.4 milliseconds. The pacemaker was set for DDDR mode with an upper rate of 130 and a lower rate of 70. A pressure dressing was applied over the pacemaker site. The patient was transferred back to medical floor in stable condition. Sponge counts were correct.
--- NOTE | 2024-09-30 08:25 | PC.NURSE ---
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 Pt alert and oriented. Breathing even and non-labored on room air. Pressure dressing to left chest dry and intact. Pt denies pain. Placed on monitoring analyst. Report called to JUSTEN Rodriges.
[2024-09-30] MEDS: acetaminophen 500 mg Tablet 1000 MG PO (13:11)
[2024-09-30] MEDS: nicotine 21 mg Patch 1 PATCH TRANSDERMA (13:56)
[2024-09-30] MEDS: ceFAZolin 2,000 mg SDV 2000 MG IVP ×2 (14:42→23:39)
[2024-09-30] MEDS: HYDROcodone-acetaminophen 5-325 mg Tablet 1 TAB PO (20:59)
[2024-09-30] MEDS: gabapentin 300 mg Capsule 600 MG PO (21:00)
[2024-10-01] VITALS: BP 148/81; PULSE 71; RESP 16; TEMP 36.5; O2SAT 90
[2024-10-01] MEDS: HYDROcodone-acetaminophen 5-325 mg Tablet 1 TAB PO ×2 (02:44→08:56)
[2024-10-01 04:00] VITALS: BP 153/92; PULSE 71; RESP 18; TEMP 36.6; O2SAT 92
--- NOTE | 2024-10-01 05:17 | ECG_ITS ---
[facility] Test Date: 2024-10-01 Pat Name: Colleen Nielsen Department: Room: 272 Gender: Female Beater Out Leveling Machine: : 1970 Requested By: Sophie Kirk Order Number: [id number] Reading MD: Sophie Kirk M.D. Measurements Intervals [place] Rate: 70 P: 262 MD: 242 QRS: 49 QRSD: 89 T: 44 QT: 453 QTc: 489 Interpretive Statements ELECTRONIC ATRIAL PACEMAKER MINIMAL ST DEPRESSION [0.025+ mV ST DEPRESSION] PROLONGED QT INTERVAL Compared to ECG 09/27/2023 14:16:06 Prolonged QT interval now present ST (T wave) deviation still present Electronically Signed On 10-01-2024 19:29:05 CDT by Sophie Kirk M.D. [email or web address]
[2024-10-01 05:34] VITALS: PULSE 70
[2024-10-01] MEDS: ceFAZolin 2,000 mg SDV 2000 MG IVP (06:00)
[2024-10-01 06:15] VITALS: PULSE 70
[2024-10-01] MEDS: nicotine 21 mg Patch 1 PATCH TRANSDERMA (07:56)
[2024-10-01] MEDS: lisinopril 20 mg Tablet PO (07:57)
[2024-10-01] MEDS: atorvastatin 40 mg Tablet PO (07:57)
[2024-10-01] MEDS: loratadine 10 mg Tablet PO (07:57)
[2024-10-01] MEDS: metoprolol succinate ER (24 HR) 25 mg Tablet 50 MG PO (07:57)
[2024-10-01] MEDS: famotidine 20 mg Tablet PO (07:57)
[2024-10-01] MEDS: clopidogrel 75 mg Tablet PO (07:57)
[2024-10-01] MEDS: isosorbide mononitrate ER 30 mg Tablet PO (07:57)
[2024-10-01] MEDS: gabapentin 300 mg Capsule PO (07:58)
[2024-10-01 08:00] VITALS: BP 145/85; PULSE 70; RESP 17; TEMP 36.6; O2SAT 91
--- NOTE | 2024-10-01 08:58 | P.PN_ITS ---
Subjective 2 Subjective: Patient with a pacemaker revision yesterday. She has no bleeding complications. Vital signs remained stable. Medications: Medication Review Details: Current Medications Acetaminophen (Acetaminophen 500 Mg Tablet) 1,000 mg PO Q8H PRN PRN Reason: pain Last Admin: 09/30/24 13:11 Dose: 1,000 mg Hydrocodone Bitart/Acetaminophen (Hydrocodone-Acetaminophen 5-325 Mg Tablet) 1 tab PO Q4H PRN PRN Reason: MODERATE PAIN Last Admin: 10/01/24 08:56 Dose: 1 tab Atorvastatin Calcium (Atorvastatin 40 Mg Tablet) 40 mg PO DAILY [facility] Last Admin: 10/01/24 07:57 Dose: 40 mg Clopidogrel Bisulfate (Clopidogrel 75 Mg Tablet) 75 mg PO DAILY [facility] Last Admin: 10/01/24 07:57 Dose: 75 mg Famotidine (Famotidine 20 Mg Tablet) 20 mg PO DAILY [facility] Last Admin: 10/01/24 07:57 Dose: 20 mg Furosemide (Furosemide 40 Mg Tablet) 40 mg PO DAILY PRN PRN Reason: edema Gabapentin (Gabapentin 300 Mg Capsule) 300 mg PO DAILY [facility] Last Admin: 10/01/24 07:58 Dose: 300 mg Gabapentin (Gabapentin 300 Mg Capsule) 600 mg PO BEDTIME [facility] Last Admin: 09/30/24 21:00 Dose: 600 mg Hydroxyzine Pamoate (Hydroxyzine 25 Mg Capsule) 25 mg PO BID PRN PRN Reason: Anxiety Sodium Chloride (Sodium Chloride 0.9%) 1,000 mls @ 75 mls/hr IV .[id number] [facility] Last Admin: 09/30/24 22:22 Dose: Not Given Isosorbide Mononitrate (Isosorbide Mononitrate Er 30 Mg Tablet) 30 mg PO DAILY [facility] Last Admin: 10/01/24 07:57 Dose: 30 mg Lisinopril (Lisinopril 20 Mg Tablet) 20 mg PO DAILY [facility] Last Admin: 10/01/24 07:57 Dose: 20 mg Loratadine (Loratadine 10 Mg Tablet) 10 mg PO DAILY [facility] Last Admin: 10/01/24 07:57 Dose: 10 mg Metoprolol Succinate (Metoprolol Succinate Er (24 Hr) 25 Mg Tablet) 50 mg PO DAILY [facility] Last Admin: 10/01/24 07:57 Dose: 50 mg Nicotine (Nicotine 21 Mg Patch) 1 patch TRANSDERMA DAILY [facility] Last Admin: 10/01/24 07:56 Dose: 1 patch Non-Formulary Medication (Adalimumab [Humira Pen]) 40 mg SUBCUT Q7D [place] Potassium Chloride (Potassium Chloride Er 20 Meq Tablet) 20 meq PO DAILY PRN PRN Reason: take with Lasix Prednisone (Prednisone 20 Mg Tablet) 40 mg PO DAILY PRN PRN Reason: joint pain flare Vitals/I&O/Wt Last Vital Signs Temp 97.9 F 10/01/24 08:00 Pulse 70 10/01/24 08:00 Resp 17 10/01/24 08:00 BP 145/85 10/01/24 08:00 Pulse Ox 91 10/01/24 08:00 O2 Del Method Room Air 10/01/24 08:00 O2 Flow Rate 2 10/01/24 00:00 09/30/24 10/01/24 10/01/24 22:59 06:59 14:59 Intake Total 480 / 840 240 / 240 Balance 480 / 840 240 / 240 Weight last 48 hrs Weight 185 lb Weight 175 lb Physical Exam 2 Narrative: GENERAL: The patient is alert and oriented times three. Not in any acute distress. HEENT: No significant pallor, icterus or lymphadenopathy.Oral cavity: There are no mucous membrane lesions. NECK: Trachea appears to be central. No masses noted. No JVD or thyromegaly appreciated. RESPIRATORY: Chest is symmetrical. No intercostals muscle retraction or any accessory muscle activation. There is no chest wall tenderness. Breath sounds are heard bilaterally. No rales or rhonchi heard. No evidence of any consolidation. The pacemaker site has no hematoma bleeding BREASTS: Deferred. HEART: The heart sounds are normal. No S3 or S4. No significant murmurs. No pericardial rub ABDOMEN: No vessel pulsations or distention. No tenderness. No organomegaly appreciated. Bowel sounds are normally heard. : Deferred. RECTAL: Deferred. LYMPHATIC: No lymphadenopathy noted in the neck. EXTREMITIES: No edema or cyanosis. No clubbing. MUSCULOSKELETAL: No acute joint deformities or swelling SKIN: There are no significant rashes or ecchymosis NEUROPSYCHIATRIC: The patient is alert and oriented x3. Appears to be in a good mood. No tremors or rigidity noted. Data 09/30/24 06:12 09/30/24 06:12 A&P Assessment and plan (1) Atrial fibrillation: Patient is currently in AV paced rhythm. The oral anticoagulant may be restarted tomorrow. Qualifiers: Atrial fibrillation type: paroxysmal Qualified Code(s): I48.0 - Paroxysmal atrial fibrillation (2) Cardiomyopathy: Most recent LV ejection fraction was 50% by echocardiogram in March of last year. Qualifiers: Cardiomyopathy type: dilated Qualified Code(s): I42.0 - Dilated cardiomyopathy (3) Pacemaker at end of battery life: Patient status post pacemaker revision. Currently seems to be stable. Pacing function is appropriate. (4) Atherosclerosis of coronary artery of [place] heart without angina pectoris: Patient has no specific symptoms of coronary insufficiency. May continue on the current management. Qualifiers: Coronary Disease-Associated Artery/Lesion type: [place] artery Qualified Code(s): I25.10 - Atherosclerotic heart disease of [place] coronary artery without angina pectoris Plan Patient will be discharged home today. Will be seen in the clinic in a week by the nurse practitioner for a wound check and pacemaker check I will be seeing her in the office as scheduled Post pacemaker revision instructions were given PDMP PDMP Reviewed: Not Reviewed Attestations 2 Medical Necessity Statement*: Discharge home today Coding Level of Care Code 16729 Diagnoses Paroxysmal atrial fibrillation I48.0 Atrial fibrillation type: paroxysmal Dilated cardiomyopathy I42.0 Cardiomyopathy type: dilated Pacemaker at end of battery life Z45.010 Atherosclerosis of [place] coronary artery of [place] heart without angina pectoris I25.10 Coronary Disease-Associated Artery/Lesion type: [place] artery
[2024-10-01 11:25] VITALS: BP 118/75; PULSE 71; RESP 17; TEMP 36.7; O2SAT 92
== END 2024-10-01 12:23 | disposition home or self-care (01) ==
LOC: CCL 05:46 → MEDSURG 10-01 07:17
PROVIDERS: PCP Family Medicine; Visit Provider Internal Medicine Cardiovascular Disease
DX: Z45.010 Encounter for checking and testing of cardiac pacemaker pulse generator [battery] (principal); I48.0 Paroxysmal atrial fibrillation; I42.0 Dilated cardiomyopathy; I25.10 Atherosclerotic heart disease of native coronary artery without angina pectoris
CPT/HCPCS: 33213; 36415; 80048; 85025; 93005; 96374; 97165; 99152; 99153; A4216; A4565; C1769; C1785; J0690; J2250; J3010; J3370; J7030; J7050; J9999

== ENCOUNTER → 2024-10-15 12:41 | Outpatient (BNVA) | payer MEDICAID, SELFPAY | PROVIDERS: PCP Family Medicine; Visit Provider Nurse Practitioner Family | DX: I48.0 Paroxysmal atrial fibrillation (principal); Z95.0 Presence of cardiac pacemaker; F17.210 Nicotine dependence, cigarettes, uncomplicated; Z79.01 Long term (current) use of anticoagulants | CPT/HCPCS: 99214 ==

== ENCOUNTER → 2024-12-10 10:42 | Outpatient (BNVA) | payer MEDICARE, BC, MEDICAID, SELFPAY | PROVIDERS: PCP Family Medicine; Visit Provider Internal Medicine Rheumatology | DX: M19.90 Unspecified osteoarthritis, unspecified site (principal); R76.8 Other specified abnormal immunological findings in serum; Z79.899 Other long term (current) drug therapy; Z71.85 Encounter for immunization safety counseling; M35.05 Sjogren syndrome with inflammatory arthritis | CPT/HCPCS: 99214 ==

== ENCOUNTER → 2025-01-01 10:33 | Outpatient (BNVA) | payer MEDICAID, SELFPAY | PROVIDERS: PCP Family Medicine; Visit Provider Internal Medicine | DX: Z45.018 Encounter for adjustment and management of other part of cardiac pacemaker (principal) | CPT/HCPCS: 93296 ==

== ENCOUNTER → 2025-01-28 12:53 | Outpatient (BNVA) | payer MEDICARE, MEDICAID, SELFPAY | PROVIDERS: PCP Family Medicine; Visit Provider Specialist | DX: G62.89 Other specified polyneuropathies (principal) | CPT/HCPCS: 99214 ==

== ENCOUNTER 2025-02-25 10:41 | Outpatient (CLI) | payer OTHER, MEDICAID, SELFPAY ==
[2025-02-25 12:14] LABS: Hematocrit 43.4 % (36-47); Hemoglobin 14.70 g/dL (11.27-16.99); Mean Corpuscular HGB Conc 33.9 g/dL (30-55); Mean Corpuscular Hemoglobin 31.4 pg (27-33); Mean Corpuscular Volume 92.7 fl (85-98); Nucleated Red Blood Cells % 0 %; Platelet Count 195 10^3/cmm (157-399); Red Blood Count 4.68 10^6/uL (3.85-5.65); White Blood Count 7.08 10^3/uL (3.29-11.43)
[2025-02-25 12:40] LABS: Alanine Aminotransferase 12 U/L (0-33); Albumin Level 4.0 g/dL (3.5-5.2); Alkaline Phosphatase 103 U/L (35-105); Aspartate Amino Transferase 16 U/L (0-32); Globulin 3.7 g/dL (1.3-4.6); Total Protein 7.7 g/dL (6.6-8.7)
== END 2025-02-25 10:42 | disposition home or self-care (01) ==
PROVIDERS: PCP Family Medicine; Visit Provider Internal Medicine Rheumatology
DX: Z79.899 Other long term (current) drug therapy (principal)
CPT/HCPCS: 36415; 80076; 82306; 82565; 85025; 85651; 86140

== ENCOUNTER 2025-04-07 00:32 | Emergency (ER) | payer OTHER, MEDICAID, SELFPAY ==
[2025-04-07 00:33] VITALS: BP 175/93; PULSE 76; RESP 14; O2SAT 94; BMI 28.1
--- NOTE | 2025-04-07 00:34 | XRR_ITS ---
PROCEDURE INFORMATION: Exam: XR Chest Exam date and time: 04/07/2025 12:47 AM Age: 55 years old Clinical indication: Chest pressure; Prior surgery; Surgery date: 6+ months; Surgery type: Pacer; C/O chest pain TECHNIQUE: Imaging protocol: Radiologic exam of the chest. Views: 1 view. COMPARISON: CT lung screening 00010 10/06/2023 8:19 AM FINDINGS: Tubes, catheters and devices: Left chest ICD versus pacemaker. Lungs: A few scattered nonspecific although chronic appearing pulmonary strands. Biapical reticulonodular scarring. Few scattered pulmonary granulomas. Pleural spaces: Unremarkable. No pleural effusion. No pneumothorax. Heart/Mediastinum: Unremarkable. No cardiomegaly. Vasculature: Aortic atherosclerosis. Bones/joints: Unremarkable. XR/XR chest 1V portable [id number] IMPRESSION: No definite acute infiltrate or effusion. Chronic findings as above.
--- NOTE | 2025-04-07 00:34 | ECG_ITS ---
[facility] Date: 2025-[facility]-07 Pat Name: Colleen Nielsen Department: Room: Gender: Female Survey Technologist: : 1970 Requested By: [place] Order Number: [id number] Kateryna MD: Sophie Kirk M.D. Measurements Intervals [place] Rate: 73 P: -89 [place]: 217 QRS: 48 QRSD: 87 T: 57 QT: 421 QTc: 466 Interpretive Statements ELECTRONIC ATRIAL PACEMAKER POSSIBLE RIGHT VENTRICULAR CONDUCTION DELAY [RSR (QR) IN V1/V2] MINIMAL ST DEPRESSION [0.025+ mV ST DEPRESSION] ABNORMAL RHYTHM ECG Compared to ECG 10/01/2024 05:17:14 Prolonged QT interval no longer present ST (T wave) deviation still present Electronically Signed On 04-07-2025 20:21:33 CDT by Sophie Kirk M.D. [email or web address]
--- OUTSIDE RECORDS SUMMARY | 2025-04-07 00:44 | XMS_ITS | Clinical Summary ---
Author Organization [facility] Address [address] Attn: Epic Prelude ADT JAYLEN KRUGER [id number] Care Team Providers Care White Kid Buffer Name Role Phone Dragan Lubin DO Primary Care Provide r Allergies No known active allergies Medications HYDROcodone-acet aminophen (NORCO) 10-325 mg Tablet Take 1 Tablet by mouth every 4 hours as needed for Pain, Severe (For Pain Scale 7-10). Max Daily Amount: 6 Tablet 40 Tablet 0 12/23/2015 Active Active Problems Problem Noted Date Diagnosed Date Tobacco use 12/23/2015 Flexor tenosynovitis of fing er Right middle finger s/p dog bite 12/21/2015 Dog bite of right hand 12/21/2015 Immunizations Immunization Administration Dates Next Due (TDVAX)(7 YRS UP) TETANUS AN D DIPHTHERIA TOXOIDS, ADSORBED (2 LF OF TETANUS TOXOID AND 2 LF OF DIPHTHERIA TOXOID), 0.5ML (PF), IM 05/29/2003 Social History Tobacco Use Types Packs/Day Years Used Date Smoking Tobacco: Light Smoker Alcohol Use Standard Drinks/Week Comments Yes 0 (1 standard drink = 0.6 oz pur e alcohol) Comments Unknown Sex and Gender Information Value Date Recorded Sex Assigned at Not on file 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 Gender Identity Not on file Sexual Orientation Not on file Last Filed Vital Signs Vital Sign Reading Time Taken Comments Blood Pressure 144/99 12/28/2015 3:25 PM CDT Pulse 97 12/28/2015 3:25 PM CDT Temperature 36.8 C (98.2 F) 12/24/2015 7:11 PM CDT Respiratory Rate 16 12/24/2015 7:11 PM CDT Oxygen Saturation - - Inhaled Oxygen Concentration - - Weight 61.2 kg (135 lb) 12/28/2015 3:25 PM CDT Height 170.2 cm (5' 7 ) 12/28/2015 3:25 PM CDT Body Mass Index 21.14 12/28/2015 3:25 PM CDT Plan of Treatment Health Maintenance Due Date Last Done Comments HEPATITIS B VACCINES (1 of 3 - 19+ 3-dose series) 02/1988 HPV/Cotest (21-29) 1990 CERVICAL CANCER SCREENING 1999 HPV/Cotest (30-65) 1999 PAP SMEAR 1999 DTAP/TDAP/TD VACCINES (1 - Tdap) 05/30/2003 05/29/20 03 BREAST CANCER SCREENING 2009 COLORECTAL SCREENING 2014 Colorectal Cancer Screening 2014 FIT-DNA Q 3 years 2014 FIT/FOBT Q 1 year 2014 Flex Sig/CT Colonography Q 5 years 2014 ZOSTER VACCINE (1 of 2) 2019 INFLUENZA VACCINE (#1) 2025 Care Teams White Kid Buffer Relationship Specialty Start Date End Date Dragan Lubin DO [address] [id number] PCP - General Internal Medicine 12/21/15
--- OUTSIDE RECORDS SUMMARY | 2025-04-07 00:44 | XMS_ITS | Encounter Summary ---
Author Organization [facility] Address [address] [place] [address] Care Team Providers Care Media Promoter Name Role Phone Dragan Lubin DO Primary Care Provide r Encounter Details Date Type Department Care Team (Latest Contact Info) Description 04/18/2002 Outpatient Historical [facility] Lobo Norris MD [address], [place] [id number] Excessive menstruation (Primary Dx) Social History Tobacco Use Types Packs/Day Years Used Date Smoking Tobacco: Never Assessed Comments Unknown Sex and Gender Information Value Date Recorded Sex Assigned at Not on file Legal Sex Female 5:54 AM [employer] Gender Identity Not on file Sexual Orientation Not on file documented as of this encounter Plan of Treatment Not on file documented as of this encounter Visit Diagnoses Diagnosis Excessive menstruation- Primary Excessive or frequent menstruation documented in this encounter Care Teams Media Promoter Relationship Specialty Start Date End Date Dragan Lubin DO [address] [place] [address] PCP - General Internal Medicine 12/21/15 documented as of this encounter
--- OUTSIDE RECORDS SUMMARY | 2025-04-07 00:44 | XMS_ITS | Clinical Summary ---
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 Gender Identity Not on file Sexual Orientation Not on file Last Filed Vital Signs Vital Sign Reading Time Taken Comments Blood Pressure 144/99 12/28/2015 3:25 PM CDT Pulse 97 12/28/2015 3:25 PM CDT Temperature 36.8 C (98.2 F) 12/24/2015 7:11 PM CDT Respiratory Rate 16 12/24/2015 7:11 PM CDT Oxygen Saturation 98% 12/24/2015 7:11 PM CDT Inhaled Oxygen Concentration - - Weight 61.2 [...] of 2) 2019 INFLUENZA VACCINE (#1) 2025 Insurance [address] [place] [address] [facility] Member Subscriber Plan / Payer (Ef fective 2015-Present) Name:Colleen Nielsen Relation to Subscriber:Self Name:Colleen Nielsen Payer ID:Not on file Type:[employer] Address: [facility] [id number] [place] [id number] Advance Directives For more information, please contact: [phone] * Full Code (Latest Code Status on File) Date Activated Date Inactivated Comments 12/21/2015 1:56 AM 12/25/2015 12:00 AM * Full Code Date Activated Date Inactivated Comments 12/21/2015 12:45 AM 12/21/2015 1:56 AM Care Teams Bunch Maker Relationship Specialty Start Date End Date Dragan Lubin DO [address] [address] PCP - General Internal Medicine 12/21/15
[2025-04-07 00:52] LABS: Hematocrit 40.5 % (36-47); Hemoglobin 13.70 g/dL (11.27-16.99); Mean Corpuscular HGB Conc 33.8 g/dL (30-55); Mean Corpuscular Hemoglobin 31.9 pg (27-33); Mean Corpuscular Volume 94.4 fl (85-98); Nucleated Red Blood Cells % 0 %; Platelet Count 198 10^3/cmm (157-399); Red Blood Count 4.29 10^6/uL (3.85-5.65); White Blood Count 7.54 10^3/uL (3.29-11.43)
[2025-04-07 01:12] VITALS: RESP 16; O2SAT 94
[2025-04-07] MEDS: morphine 4 mg/mL SDV 1 mL IVP (01:12)
[2025-04-07 01:13] LABS: Troponin(5th) Baseline 11 ng/L (0-10)
[2025-04-07 01:22] LABS: Alanine Aminotransferase 10 U/L (0-33); Albumin Level 4.2 g/dL (3.5-5.2); Alkaline Phosphatase 86 U/L (35-105); Blood Urea Nitrogen 12 mg/dL (6-20); Calcium 9.7 mg/dL (8.5-10.5); Carbon Dioxide 24 mmol/L (22-29); Chloride 101 mmol/L (98-107); Creatinine Clr Calc Pharmacy 98.6266; Globulin 3.3 g/dL (1.3-4.6); Glucose 120 mg/dL (65-115); NT Pro B Type Natriuretic Pept 473 pg/mL (0-125); Osmolality Calculated 295 mOsm/kg (285-295); Sodium 142 mmol/L (136-145); Total Protein 7.5 g/dL (6.6-8.7)
[2025-04-07 01:29] LABS: Anion Gap 20.8 (5-19); Aspartate Amino Transferase 18 U/L (0-32); Potassium 3.8 mmol/L (3.5-5.1)
[2025-04-07 02:30] VITALS: BP 151/86; PULSE 79; RESP 17; O2SAT 95
[2025-04-07 02:33] LABS: Troponin 5 2HR 8.58 ng/L (0-10)
[2025-04-07 02:35] LABS: Troponin 5 2HR Delta -2.42 ABS# (0-10)
[2025-04-07 03:07] VITALS: BP 160/95; PULSE 83; O2SAT 99
--- NOTE | 2025-04-07 03:33 | ED_ITS ---
HPI - Chest Pain 2 General: Chief Complaint: Chest Pain Stated Complaint: CHEST PAIN Time Seen by Provider: 04/07/25 00:33 History of Present Illness: 55-year-old female with history of prior myocardial infarction status post two stents (placed approximately 2 years ago in April) and an electronic atrial pacemaker presents with intermittent chest pain starting around 10:30?10:45 pm. Pain is located to the right of the sternum, comes and goes, non-radiating, currently 2/10, worst 4?5/10. Pain is not worse with deep inspiration and is not reproducible to palpation. Patient denies nausea; reports no diaphoresis yet. Reports feeling very weak when walking to the ambulance. Denies pleuritic features. Shortness of breath and lightheadedness not clearly addressed. Patient is concerned due to prior cardiac history. Review of systems otherwise not detailed. Related Data Home Medications ?Medication ?Instructions ?Recorded ?Confirmed hydroxyzine pamoate 25 mg capsule 25 mg PO BID PRN Anx iety 05/12/23 03/01/25 famotidine 20 mg tablet 20 mg PO DAILY 08/01/2402/14 loratadine 10 mg tablet 10 mg PO DAILY 08/01/2402/14 fluticasone propionate 50 1 spray intranasal DAILY PRN 10/15/24 03/01/25 mcg/actuation nasal spray,suspension mecobalamin (vitamin B12) [B12 PO 01/28/25 03/01/25 Active] Previous Rx's ?Medication ?Instructions ?Recorded furosemide 40 mg tablet 40 mg PO DAILY PRN edema #30 tabs 07/05/23 potassium chloride 20 mEq 20 meq PO DAILY PRN take wit h 07/05/23 tablet,extended Lasix #30 tabs release(part/cryst) (Klor-Con M) acetaminophen 500 mg tablet 1,000 mg (2 x 500 mg) PO Q 8H PRN 01/07/24 (Tylenol Extra Strength) pain #30 tabs lisinopril 20 mg tablet 20 mg PO DAILY #90 tabs 04/18 0 atorvastatin 40 mg tablet 40 mg PO DAILY #90 tabs 08/17 clopidogrel 75 mg tablet 75 mg PO DAILY #90 tabs 08/18 adalimumab 40 mg/0.8 mL 40 mg (0.8 mL) SUBCUT .Q7day s #4 ea 12/10/24 subcutaneous pen kit (Humira Pen) gabapentin 300 mg capsule See Rx Instructions PO .COMP ARIEL 12/10/24 #90 caps prednisone 20 mg tablet 40 mg (2 x 20 mg) PO DAILY P RN 12/10/24 joint pain flare #30 tabs isosorbide mononitrate 30 mg See Rx Instructions .Rout e 02/10/25 tablet,extended release 24 hr .COMPLEX #90 tabs cholecalciferol (vitamin D3) 1,250 50,000 unit PO .q1w k #15 tabs 02/28/25 mcg (50,000 unit) tablet metoprolol succinate 25 mg 50 mg (2 x 25 mg) PO DAILY #90 tabs 03/18/25 tablet,extended release 24 hr (Toprol XL) apixaban 5 mg tablet (Eliquis) See Rx Instructions .Ro kelvin 03/28/25 .COMPLEX #60 tabs Allergies Allergy/AdvReac Type Severity Reaction Status Date / Time Sulfa (Sulfonamide Allergy Severe ALGY-Swell Verified 03/01/25 10:34 Antibiotics) Lip/Tongue/Throat leflunomide AdvReac Intermediate hair loss Verified 03/01/25 10:34 PFSH ED 2 PFSH: Medical History (Updated 04/07/25 @ 02:55 by [place] Encinas MD) Sjogren's syndrome with inflammatory arthritis Coronary artery disease ST elevation NM (STEMI) STEMI (ST elevation myocardial infarction) Hx of cardiac pacemaker Immunization counseling High risk medication use SS-A antibody positive Inflammatory arthritis delivery delivered SVT (supraventricular tachycardia) Pacemaker Cardiomyopathy Hypertension Atrial fibrillation Radiculopathy delivery delivered Surgical History History of partial hysterectomy H/O dilation and curettage Family History Other CAD (coronary artery disease) Cancer Diabetes Psychiatric illness Social History Smoking and tobacco/nicotine status: current every day tobacco/nicotine user cigarettes Packs smoked per day: 1 Years cigarettes smoked: 39 Alcohol intake: current Alcohol intake frequency: holidays/special occasions only Substance/Drug Use: never Physical Exam 2 Const: COMMON NORMALS: no acute distress, patient oriented x3 and alert HENMT: COMMON NORMALS: normocephalic and atraumatic HEAD & SCALP: n ormocephalic and atraumatic Eye: COMMON NORMALS: Equal, round and reactive pupils present, EOMs intact bilaterally and no scleral icterus PUPIL: Yes Equal, round and reactive pupils present Chest: OTHER: Chest pain not reproducible with palpation or deep inspiration Resp: COMMON NORMALS: normal respiratory effort and No retractions Cardio: COMMON NORMALS: regular rate, regular rhythm and No murmurs present (Cardio) RATE: regular rate RHYTHM: regular rhythm GI: COMMON NORMALS: Normal to inspection, nondistended, normoactive bowel sounds present, Soft to palpation and non-tender PALPATION: Yes Soft to palpation Neuro: COMMON NORMALS: patient oriented x3 SENSORIUM/ORIENTATION: Yes alert Skin: COMMON NORMALS: no rashes or lesions noted GENERAL SKIN EXAM: no rashes or lesions noted Course 2 Vital Signs: Vital signs: Vital Signs Pulse Rate 83 04/07/25 03:07 Respiratory Rate 17 04/07/25 02:30 Blood Pressure 160/95 04/07/25 03:07 Pulse Oximetry 99 04/07/25 03:07 Oxygen Delivery Me thod Room Air 04/07/25 00:33 MDM - Chest Pain Medical Decision Making 55-year-old female with prior myocardial infarction, two stents, and a pacemaker presents with intermittent right parasternal chest pain since approximately 22:30?22:45, maximum 4?5/10, now 2/10, non-pleuritic, non-reproducible, no nausea, no diaphoresis yet, reports weakness with ambulation. Physical exam: no distress, lungs clear, abdomen soft, non-tender, chest pain not reproducible to palpation, no radiation. ECG at 00:36: electronic atrial pacemaker, incomplete right ventricular conduction delay, rate 73, no ST elevation or depression, no T-wave inversions, QTc 447 ms. Troponin is measured to be nonsignificant twice and stable. Pain is relieved at this time. EKG is reassuring. I do not suspect ACS, PE, pneumonia, or any other emergent process warranting further workup. She will be discharged home in stable and improved condition. Lab Data 04/07/25 00:21 04/07/25 00:21 Radiology Impressions Chest X-Ray 04/07/25 00:34 IMPRESSION: No definite acute infiltrate or effusion. Chronic findings as above. Laboratory Results WBC 7.54 10^3/uL (3.29-11.43) 04/07/25 00:21 RBC 4.29 10^6/uL (3.85-5.65) 04/07/25 00:21 Hgb 13.70 g/dL (11.27-16.99) 04/07/25 00:21 Hct 40.5 % (36-47) 04/07/25 00:21 MCV 94.4 fl (85-98) 04/07/25 00:21 MCH 31.9 pg (27-33) 04/07/25 00: MCHC 33.8 g/dL (30-55) 04/07/25 00:21 RDW 14.9 % (12.1-15.1) 04/07/25 00:21 Plt Count 198 10^3/cmm (157-399) 04/07/25 00:21 MPV 10.4 fL (7.4-10.4) 04/07/25 00:21 Neut % (Auto) 64.6 % 04/07/25 00:21 Lymph % (Auto) 27.5 % 04/07/25 00:21 [place] % (Auto) 5.2 % 04/07/25 00:21 Eos % (Auto) 2.0 % 04/07/25 00:21 Baso % (Auto) 0.3 % 04/07/25 00: Neut # (Auto) 4.88 10^3/uL (1.8-7.7) 04/07/25 00: Lymph # (Auto) 2.1 10^3/uL (0.8-4.8) 04/07/25 00:21 [place] # (Auto) 0.4 10^3/uL (0.2-0.9) 04/07/25 00:21 Eos # (Auto) 0.2 10^3/uL (0.0-0.8) 04/07/25 00:21 Baso # (Auto) 0.0 10^3/uL (0.0-0.1) 04/07/25 00:21 Nucleated RBC % (auto) 0 % 04/07/25 00: Nucleated RBCs # 0.0 /100WBC 04/07/25 00:21 Sodium 142 mmol/L (136-145) 04/07/25 00:21 Potassium 3.8 mmol/L (3.5-5.1) 04/07/25 00:21 Chloride 101 mmol/L (98-107) 04/07/25 00:21 Carbon Dioxide 24 mmol/L (22-29) 04/07/25 00:21 Anion Gap 20.8 (5-19) H 04/07/25 00:21 BUN 12 mg/dL (6-20) 04/07/25 00:21 Creatinine 0.7 mg/dL (0.5-0.9) 04/07/25 00:21 GFR Calculation 86.6 mL/min (90-130) L 04/07/25 00:21 Glucose 120 mg/dL (65-115) H 04/07/25 00:21 Calculated Osmolality 295 mOsm/kg (285-295) 04/07/25 00:21 Calcium 9.7 mg/dL (8.5-10.5) 04/07/25 00:21 Total Bilirubin 0.3 mg/dL (0.15-1.2) 04/07/25 00:21 AST 18 U/L (0-32) 04/07/25 00:21 ALT 10 U/L (0-33) 04/07/25 00:21 Alkaline Phosphatase 86 U/L (35-105) 04/07/25 00:21 Troponin T Baseline 11 ng/L (0-10) H 04/07/25 00:21 Troponin T 120 Minute 8.58 ng/L (0-10) 04/07/25 02:06 Delta Troponin T -2.42 ABS# (0-10) L 04/07/25 02:06 NT-Pro-B Natriuret Pep 473 pg/mL (0-125) H 04/07/25 00:21 Total Protein 7.5 g/dL (6.6-8.7) 04/07/25 00:21 Albumin 4.2 g/dL (3.5-5.2) 04/07/25 00:21 Globulin 3.3 g/dL (1.3-4.6) 04/07/25 00:21 XR interpretation done by ED provider, pending radiology final review Discharge Plan Discharge Patient Disposition: Home Clinical Impression: Chest pain Condition: Stable Prescriptions: No Action acetaminophen [Tylenol Extra Strength] 500 mg tablet 1,000 mg PO Q8H PRN (Reason: pain) Qty: 30 0RF Humira Pen 40 mg/0.8 mL pen injector kit 40 mg SUBCUT .Q7days Qty: 4 5RF gabapentin 300 mg capsule See Rx Instructions PO .COMPLEX Qty: 90 5RF Rx Instructions: take 1 cap in am and 2 caps at bedtime orally; prednisone 20 mg tablet 40 mg PO DAILY PRN (Reason: joint pain flare) Qty: 30 1RF Rx Instructions: take 2 tab daily for 7 days as needed for arthritis flare PO PRN; furosemide 40 mg tablet 40 mg PO DAILY PRN (Reason: edema) Qty: 30 1RF potassium chloride [Klor-Con M20] 20 mEq tablet,ER particles/crystals 20 meq PO DAILY PRN (Reason: take with Lasix) Qty: 30 1RF hydroxyzine pamoate 25 mg capsule 25 mg PO BID PRN (Reason: Anxiety) lisinopril 20 mg tablet 20 mg PO DAILY Qty: 90 3RF famotidine 20 mg tablet 20 mg PO DAILY loratadine 10 mg tablet 10 mg PO DAILY fluticasone propionate 50 mcg/actuation spray,suspension 1 spray intranasal DAILY PRN mecobalamin (vitamin B12) [B12 Active] PO atorvastatin 40 mg tablet 40 mg PO DAILY Qty: 90 3RF clopidogrel 75 mg tablet 75 mg PO DAILY Qty: 90 3RF isosorbide mononitrate 30 mg tablet extended release 24 hr See Rx Instructions .ROUTE .COMPLEX Qty: 90 0RF Dose Instruction: Take 1 tablet by mouth once daily Rx Instructions: Take 1 tablet by mouth once daily cholecalciferol (vitamin D3) 1,250 mcg (50,000 unit) tablet 50,000 unit PO .q1wk Qty: 15 1RF metoprolol succinate [Toprol XL] 25 mg tablet extended release 24 hr 50 mg PO DAILY Qty: 90 3RF Eliquis 5 mg tablet See Rx Instructions .ROUTE .COMPLEX Qty: 60 6RF Dose Instruction: Take 1 tablet by mouth twice daily Rx Instructions: Take 1 tablet by mouth twice daily Discharge Orders: Discharge ED (Routine); Ordered 04/07/25 Ordered By: [place] Encinas Referrals: Izabela Fields DO [Primary Care Provider, TRANSFER AGENT] Discharge Diet: Usual diet Discharge Activity: Increase activity as tolerated Patient Instructions: Chest Pain - Noncardiac, Patient Portal & Latisha Instructions Print Language: Albanian Coding Level of Care Code ED Box Lining Machine Operator for Jose Carlos Arana
== END 2025-04-07 03:09 | disposition home or self-care (01) ==
PROVIDERS: Emergency Provider Student in an Organized Health Care Education/Training Program; PCP Family Medicine
DX: R07.9 Chest pain, unspecified (principal); I25.2 Old myocardial infarction; I25.10 Atherosclerotic heart disease of native coronary artery without angina pectoris; I47.10 Supraventricular tachycardia, unspecified; I10 Essential (primary) hypertension; I48.91 Unspecified atrial fibrillation; Z95.5 Presence of coronary angioplasty implant and graft; Z95.0 Presence of cardiac pacemaker; Z79.01 Long term (current) use of anticoagulants
CPT/HCPCS: 36415; 71045; 80053; 83880; 84484; 85025; 93005; 96374; 99285; J2270

== ENCOUNTER → 2025-04-30 11:46 | Outpatient (BNVA) | payer OTHER, MEDICAID, SELFPAY | PROVIDERS: PCP Family Medicine; Visit Provider Internal Medicine Cardiovascular Disease | DX: Z45.018 Encounter for adjustment and management of other part of cardiac pacemaker (principal) | CPT/HCPCS: 93296 ==

== ENCOUNTER 2025-05-01 14:57 | Outpatient (CLI) | payer OTHER, MEDICAID, SELFPAY ==
--- NOTE | 2025-05-01 15:03 | CT_ITS ---
WS: [id number] LDCT LUNG CANCER SCREENING HISTORY: ENCOUNTER FOR SCREENING FOR MALIGNANT NEOPLASM OF REPIRATORY TECHNIQUE: Axial imaging performed from the apices to 1 cm below the costophrenic angles. Coronal and sagittal reformats are submitted with axial MIP series. All CT scans at [facility] use at least one of these dose optimization techniques: automated exposure control; mA and/or kV adjustment per patient size (includes targeted exams where dose is matched to clinical indication); or iterative reconstruction. DLP: 57.19 mGy.cm DIvol: Mean CTDIvol: 1.10 (mGy) COMPARISON: 10/06/2023 Diagnostic quality: Satisfactory Lungs: Marked pulmonary hyperexpansion. Paraseptal emphysema. Multi lobar benign calcified granuloma. No pulmonary mass or nodule. No endobronchial lesions. Heart: Normal size heart with no pericardial effusion.. LEFT subclavian dual- lead cardiac pacer. Other findings: Moderate atherosclerosis thoracic aorta. No aneurysm. Normal size pulmonary artery. No mediastinal or hilar adenopathy. Small hiatal hernia. No adrenal mass. CT/CT lung screening [id number] IMPRESSION: LUNG-RADS: 2-Benign Appearance or Behavior FOLLOW UP: 12 Month: Continue annual screening with LDCT OTHER FINDINGS (S MODIFIER): None.
== END 2025-05-01 14:58 | disposition home or self-care (01) ==
LOC: RAD 14:58
PROVIDERS: PCP Family Medicine; Visit Provider Family Medicine
DX: Z12.2 Encounter for screening for malignant neoplasm of respiratory organs (principal); F17.210 Nicotine dependence, cigarettes, uncomplicated; J98.4 Other disorders of lung; J43.8 Other emphysema; J84.10 Pulmonary fibrosis, unspecified; L92.8 Other granulomatous disorders of the skin and subcutaneous tissue; Z95.0 Presence of cardiac pacemaker; I70.0 Atherosclerosis of aorta; K44.9 Diaphragmatic hernia without obstruction or gangrene
CPT/HCPCS: 71271

== ENCOUNTER 2025-05-02 08:51 | Outpatient (CLI) | payer OTHER, MEDICAID, SELFPAY ==
--- NOTE | 2025-05-02 | MM_ITS ---
WS: [id number] SCREENING DIGITAL BREAST TOMOSYNTHESIS MAMMOGRAM WITH CAD HISTORY: ANNUAL SCREENING COMPARISON: 10/06/2023 Bilateral CC and MLO with tomosynthesis and synthetic mammography submitted. Computer aided detection analyzed. Breast composition: There are scattered areas of fibroglandular density. There is a lobulated mass seen only on the LEFT MLO projection measuring 5.4 mm in the superior anterior LEFT breast. Cannot identify this mass in any other projections or on prior imaging studies. Recommend additional follow-up. RIGHT breast is negative. RIGHT breast contains benign arterial calcifications. MM/MM [facility] tomosynthesis [id number] IMPRESSION: BI-RADS: 0 - Incomplete: Need additional imaging evaluation. FOLLOW UP: Need Additional Imaging LEFT breast: Spot compression views (anterior LEFT CC and MLO). True ML. Ultras ound to follow if abnormality persists.
[2025-05-02 09:33] LABS: Magnesium 1.7 mg/dL (1.7-2.3); Thyroid Stimulating Hormone 1.79 uIU/mL (0.27-4.20)
== END 2025-05-02 08:52 | disposition home or self-care (01) ==
LOC: RAD 08:52
PROVIDERS: Internal Medicine Cardiovascular Disease; PCP Family Medicine; Visit Provider Family Medicine
DX: I25.10 Atherosclerotic heart disease of native coronary artery without angina pectoris (principal); I42.9 Cardiomyopathy, unspecified; I10 Essential (primary) hypertension; I48.0 Paroxysmal atrial fibrillation; Z79.01 Long term (current) use of anticoagulants; Z95.0 Presence of cardiac pacemaker; Z95.5 Presence of coronary angioplasty implant and graft; F17.210 Nicotine dependence, cigarettes, uncomplicated; I25.2 Old myocardial infarction; R06.02 Shortness of breath; I47.10 Supraventricular tachycardia, unspecified
CPT/HCPCS: 77063; 77067; 83735; 84443; 99214

== ENCOUNTER 2025-05-09 07:51 | Outpatient (CLI) | payer OTHER, MEDICAID, SELFPAY ==
[2025-05-09 08:21] VITALS: BMI 28.1
--- NOTE | 2025-05-09 08:25 | NMCV_ITS ---
NM leonard perf SPECT r/s* [id number] Colleen Nielsen Age: 55 Gender: F : 1970 Exam Date: 05/09/2025 09:35 Ordering Phys: Angel Collins MD ([email or web address]) Technologist: STACY Alaniz Exam Location: [facility] Indications: CP STRESS TEST Please see separate stress test report in [facility] for full findings IMAGE PROTOCOL Rest/Stress 1 Lexiscan Day Radiopharmaceutical Dose (mCi) Administration Site Administered by Rest: Tc-99m 10.6 IV Mariposa Ortiz, CAR[employer]AKER GROUNDS Sestamibi Stress:Tc-99m 32.5 IV Mariposa Paulsongle, [employer]OUNDS Sestamibi Rest: 09-May-2025 60 Discovery 630 Stress: 09-May-2025 30 Discovery 630 0.4mg Lexiscan. Images obtained in supine and prone position. SPECT RESULTS Technical Quality: Good Raw Data Analysis: Normal Image Corrections: No attenuation or motion correction applied Summed Stress Score: 2 Summed Rest Score: 0 Summed Difference Score: 2 PERFUSION FINDINGS Basal to distal inferior patchy decreased tracer uptake noted in the absence of wall motion abnormality appeared to be artifact. There appeared to be small apical reduced tracer uptake noted possible apical thinning artifact FUNCTIONAL RESULTS (calculated via Gated SPECT) Stress Image LV EF (%): 73 Stress EDV (mL):86 TID: 1.02 Stress ESV (mL):23 FUNCTIONAL FINDINGS: There is normal left ventricular systolic function. IMPRESSIONS Perfusion scan is not significant for ischemia. Tam Calzada MD (Electronically Signed) Final Date: 11 May 2025 01:48 S
--- NOTE | 2025-05-09 08:25 | ECG_ITS ---
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 The perfusion scan will be documented separately. DATA: Baseline heart rate was 72 beats per minute. Baseline blood pressure was 108/66 millimeters of mercury. Target heart rate was 164. Maximum heart rate achieved was 82. which was 50% of the predicted target heart rate. Maximum blood pressure was 122/68 millimeters of mercury. The reason for ending the test was completion of the protocol. The patient did not experience any symptoms. ELECTROCARDIOGRAM: BASELINE: Sinus rhythm. Normal axis. Otherwise, no ST-T changes suggestive of ischemia noted. No arrhythmia noted. EXERCISE: After Lexiscan injection, no ST-T changes suggestive of ischemic noted. No arrhythmia noted. CONCLUSION: Please note due to baseline abnormality of the EKG specificity and sensitivity of the EKG portion of LexiScan MIBI stress test will be low 1. EKG not suggestive of ischemia 2. Lexiscan injection unremarkable. Electronically Signed On 05-11-2025 22:47:02 CDT by CHELSIE LEIJA [email or web address]
[2025-05-09 10:36] VITALS: BP 117/62; PULSE 72
== END 2025-05-09 07:52 | disposition home or self-care (01) ==
LOC: CDL 07:54
PROVIDERS: PCP Family Medicine; Visit Provider Internal Medicine Cardiovascular Disease
DX: I25.10 Atherosclerotic heart disease of native coronary artery without angina pectoris (principal)
CPT/HCPCS: 36415; 78452; 93017; 96374; A9500; J2785

== ENCOUNTER 2025-05-23 06:16 | Outpatient (CLI) | payer OTHER, MEDICAID, SELFPAY ==
--- NOTE | 2025-05-23 07:00 | USCV_ITS ---
Colleen Nielsen Age: 55 Gender: F : 1970 Exam Date: 05/23/2025 06:41 Ordering Phys: Angel Collins MD ([email or web address]) Technologist: RADHA Exam [place] [facility] [place] [facility] [place] Indication: SoB BP: 158 / 80 HR: 66 Rhythm: Sinus Technical Quality: Adequate MEASUREMENTS (Male / Female) Normal Values 2D ECHO LV Diastolic Diameter PLAX 5.4 cm 4.2 - 5.9 / 3.9 - 5.3 cm IVS Diastolic Thickness 0.7 cm 0.6 - 1.0 / 0.6 - 0.9 cm IVS Systolic Thickness 0.9 cm LVPW Diastolic Thickness 0.9 cm 0.6 - 1.0 / 0.6 - 0.9 cm LVPW Systolic Thickness 1.2 cm LVOT Diameter 2.0 cm LV Ejection Fraction 2D Teich 35.8 % LV Ejection Fraction MOD 4C 63.5 % LV Ejection Fraction MOD 2C 74.2 % LV Ejection Fraction 2C AL 75.3 % LA Diameter 3.9 cm RA Systolic Volume 4C AL 36.5 ml RA Systolic Volume 4C MOD 35.9 ml LA Sys Volume AL 30.6 cm cubed LA Sys Volume Index AL 15.2 cm cubed/m squared Aorta at Sinotubular Diameter 2.4 cm IVC Diameter 1.3 cm M-MODE LA Ao Ratio MM 2.0 AV Cusp Separation MM 1.8 cm DOPPLER AV Peak Velocity 111.0 cm/s LVOT Peak Velocity 79.0 cm/s AV Area Cont Eq vti 2.5 cm squared AV Area Cont Eq pk 2.3 cm squared MV Peak Velocity 64.0 cm/s MV Area PHT 4.3 cm squared Mitral E to A Ratio 1.3 TR Peak Velocity 149.0 cm/s TR Peak Gradient 8.9 mmHg TV Peak E Velocity 56.0 cm/s PV Peak Velocity 82.0 cm/s FINDINGS Left Ventricle Normal left ventricular size, systolic function and wall thickness with no regional wall motion abnormality. Left ventricular ejection fraction is 63%. Normal left ventricular diastolic function. Right Ventricle Normal right ventricular size and systolic function. Right Atrium Normal right atrial size. Left Atrium Normal left atrial size. IA Septum Normal appearance of the interatrial septum. Mitral Valve Normal mitral valve structure. Trace regurgitation. Aortic Valve There is mild aortic valve calcification without stenosis or regurgitation. Tricuspid Valve Normal tricuspid valve structure. No tricuspid valve stenosis or regurgitation. Normal pulmonary pressure. Pulmonic Valve Normal pulmonic valve structure. No pulmonic valve stenosis or regurgitation. Pericardium No pericardial effusion. Aorta Normal diameter of the aortic root and ascending thoracic aorta. IVC Inferior vena cava not visualized. CONCLUSIONS Normal left ventricular size, systolic function and wall thickness with ejection fraction of 63%. Normal left ventricular diastolic function. Normal right ventricular size and systolic function. There is mild aortic valve calcification without stenosis or regurgitation. Angel Collins MD, FACC (Electronically Signed) Final Date: 31 May 2025 12:46 S
== END 2025-05-23 06:17 | disposition home or self-care (01) ==
LOC: RAD 06:18
PROVIDERS: PCP Family Medicine; Visit Provider Internal Medicine Cardiovascular Disease
DX: R06.02 Shortness of breath (principal); I35.8 Other nonrheumatic aortic valve disorders
CPT/HCPCS: 93306

== ENCOUNTER 2025-06-02 09:14 | Outpatient (CLI) | payer OTHER, MEDICAID, SELFPAY ==
--- NOTE | 2025-06-02 09:18 | MM_ITS ---
WS: [id number] ADDITIONAL VIEWS LEFT MAMMOGRAM WITH DIGITAL BREAST TOMOSYNTHESIS. LEFT breast ultrasound, limited. HISTORY: ABNORMAL LEFT MAMMOGRAM COMPARISON: 10/06/2023, 05/02/2025 Spot compression views LEFT breast in CC, MLO projections and true ML submitted with digital breast tomosynthesis and SM. Breast composition: There are scattered areas of fibroglandular density. Reidentified is a ovoid mass in the LEFT breast towards 1:00 at an anterior depth. Mass measures 7 x 3 x 6 mm. This mass is better localized on the spot compression views. After better localization this mass may have been present on 10/06/2023 but obscured by the overlying soft tissue. Mass is slightly increased in size. LEFT breast ultrasound, limited. Cystic mass corresponding to the mammographic abnormality in the LEFT breast at 1:00, 1 cm from the nipple is identified. Mass measures 0.8 x 0.4 x 0.3 cm. No increased vascularity. No posterior shadowing. MM/MM diag LT tomosynthesis [id number] IMPRESSION: BI-RADS: 3 - Probably Benign. FOLLOW UP: 6 Month Follow-up Recommend LEFT breast ultrasound follow-up in 6 months. Favor the mammographic and ultrasound abnormality is a complex cyst or lymph node.
== END 2025-06-02 09:15 | disposition home or self-care (01) ==
LOC: RAD 09:15
PROVIDERS: PCP Family Medicine; Visit Provider Family Medicine
DX: R92.8 Other abnormal and inconclusive findings on diagnostic imaging of breast (principal); R92.322 Mammographic fibroglandular density, left breast; N63.22 Unspecified lump in the left breast, upper inner quadrant
CPT/HCPCS: 76642; 77061; 77063

== ENCOUNTER → 2025-06-16 07:40 | Outpatient (BNVA) | payer OTHER, MEDICAID, SELFPAY | PROVIDERS: PCP Family Medicine; Visit Provider Internal Medicine Cardiovascular Disease | DX: I25.10 Atherosclerotic heart disease of native coronary artery without angina pectoris (principal); I10 Essential (primary) hypertension; I42.9 Cardiomyopathy, unspecified; I48.0 Paroxysmal atrial fibrillation; Z79.01 Long term (current) use of anticoagulants; Z95.5 Presence of coronary angioplasty implant and graft; Z95.0 Presence of cardiac pacemaker; F17.210 Nicotine dependence, cigarettes, uncomplicated; I25.2 Old myocardial infarction | CPT/HCPCS: 99214 ==